=== PATIENT | female | born 1945 | race Caucasian/White ===

== ENCOUNTER → 2017-01-01 | Outpatient (CLI) | payer OTHER ==
[~2017-01-01] MED LIST: ASPI-232 PO; IBUP1CAP9 PO; MULT-506 PO; NAPR1CAP12 PO; stool softner PO
== END | disposition home or self-care (01) ==
LOC: C.LABSPEC 12:23
PROVIDERS: ATTEND Internal Medicine
DX: Z12.11 Encounter for screening for malignant neoplasm of colon (principal)

== ENCOUNTER → 2017-03-01 | Outpatient (CLI) | payer OTHER ==
--- NOTE | 2017-03-01 08:46 | DIAGNOSTIC IMAGING REPORT ---
RIGHT ANKLE 3 VIEWS HISTORY: TRAUMA RT ANKLE PAIN Right COMPARISON: None. FINDINGS: There is no fracture or dislocation. Mild soft tissue swelling. No radiopaque foreign bodies. Posterior calcaneal spur. IMPRESSION: No fractures. Electronically signed by: George Al M.D. 03/01/2017 8:45 AM Dictated Date/Time: 03/01/2017 8:43 AM
== END | disposition home or self-care (01) ==
LOC: C.RAD 08:10
PROVIDERS: ATTEND Internal Medicine
DX: S99.911A Unspecified injury of right ankle, initial encounter (principal); X58.XXXA Exposure to other specified factors, initial encounter

== ENCOUNTER → 2017-06-21 | Outpatient (CLI) | payer OTHER ==
[2017-06-21 12:46] LABS: BASO % 0.6 %; BASO ABS # 0.05 K/uL (0-0.2); COMPLETE YES; EOS % 2.3 %; HEMATOCRIT 40.1 % (37-47); IG% 0.1 %; LYMPH % 40.1 %; LYMPH ABS # 3.25 K/uL (1.2-3.4); MEAN CELL VOLUME 94.6 fL (80-100); MEAN CORPUSCULAR HEMOGLOBIN 31.1 pg (25-34); MEAN CORPUSCULAR HGB CONC 32.9 g/dl (32-36); MEAN PLATELET VOLUME 10.3 fL (7.4-10.4); MONO % 6.7 %; NEUT % 50.2 %; PLATELET COUNT 255 K/uL (130-400); RED BLOOD COUNT 4.24 M/uL (4.2-5.4); WHITE BLOOD COUNT 8.11 K/uL (4.8-10.8)
[2017-06-21 13:13] LABS: ALT/SGPT 32 U/L (12-78); BLOOD UREA NITROGEN 19 mg/dl (7-18); CARBON DIOXIDE 27 mmol/L (21-32); CHLORIDE 106 mmol/L (98-107); CHOLESTEROL 209 mg/dl (0-200); CREATININE 0.91 mg/dl (0.60-1.20); GLUCOSE 104 mg/dl (70-99); POTASSIUM 4.3 mmol/L (3.5-5.1); SODIUM 137 mmol/L (136-145); TRIGLYCERIDES 226 mg/dl (0-150); VERY LOW DENSITY LIPOPROT CALC 45 mg/dl
[2017-06-21 13:23] LABS: ALB/GLOB RATIO 1.2 (0.9-2); ALKALINE PHOSPHATASE 47 U/L (45-117); AST/SGOT 23 U/L (15-37); CHOLESTEROL/HDL RATIO 3.6; HDL CHOLESTEROL 58 mg/dl
== END | disposition home or self-care (01) ==
LOC: C.LABSPEC 12:14
PROVIDERS: ATTEND Internal Medicine
DX: R53.83 Other fatigue (principal); E78.5 Hyperlipidemia, unspecified

== ENCOUNTER → 2017-12-24 | Outpatient (CLI) | payer OTHER ==
[2017-12-24 13:10] LABS: BASO % 0.2 %; BASO ABS # 0.02 K/uL (0-0.2); EOS ABS # 0.16 K/uL (0-0.5); HEMATOCRIT 41.6 % (37-47); HEMOGLOBIN 13.8 g/dL (12.0-16.0); IG# 0.02 K/uL (0.00-0.02); LYMPH % 31.8 %; LYMPH ABS # 2.57 K/uL (1.2-3.4); MEAN CELL VOLUME 93.7 fL (80-100); MEAN CORPUSCULAR HEMOGLOBIN 31.1 pg (25-34); MEAN CORPUSCULAR HGB CONC 33.2 g/dl (32-36); MEAN PLATELET VOLUME 10.6 fL (7.4-10.4); MONO ABS # 0.73 K/uL (0.11-0.59); NEUT % 56.8 %; NEUT ABS # 4.59 K/uL (1.4-6.5); PLATELET COUNT 266 K/uL (130-400); RED CELL DISTRIBUTION WIDTH CV 13.4 % (11.5-14.5); RED CELL DISTRIBUTION WIDTH SD 46.2 fL (36.4-46.3); WHITE BLOOD COUNT 8.09 K/uL (4.8-10.8)
[2017-12-24 13:27] LABS: ALBUMIN 4.1 gm/dl (3.4-5.0); ALKALINE PHOSPHATASE 59 U/L (45-117); ALT/SGPT 26 U/L (12-78); AST/SGOT 22 U/L (15-37); BLOOD UREA NITROGEN 17 mg/dl (7-18); CALCIUM 9.5 mg/dl (8.5-10.1); CARBON DIOXIDE 25 mmol/L (21-32); CHOLESTEROL 216 mg/dl (0-200); CREATININE 1.09 mg/dl (0.60-1.20); GLUCOSE 113 mg/dl (70-99); LDL CHOLESTEROL (DIRECT) 136 mg/dl; POTASSIUM 4.5 mmol/L (3.5-5.1); SODIUM 137 mmol/L (136-145); TOTAL PROTEIN 7.8 gm/dl (6.4-8.2)
== END | disposition home or self-care (01) ==
LOC: C.LABSPEC 12:34
PROVIDERS: ATTEND Internal Medicine
DX: R73.9 Hyperglycemia, unspecified (principal); E78.5 Hyperlipidemia, unspecified; E66.9 Obesity, unspecified; E55.9 Vitamin D deficiency, unspecified

== ENCOUNTER 2023-06-28 08:36 | Inpatient (IN) ==
--- NOTE | 2023-06-28 08:50 | Emergency Department Note ---
Impression & Plan URI (upper respiratory infection), Cigarette smoker, Elevated troponin, Enterovirus infection ED Provider Note Provider: John Winston MD DATE OF SERVICE: 06/28/2023 CHIEF COMPLAINT: Cough, nausea, cold symptoms, sore throat HISTORY OF PRESENT ILLNESS: Patient is a 78-year-old female past medical history of sinusitis and pneumonia presenting here today reporting that she believes she has a cold or flu. Reports cough and nausea nasal congestion and a sore throat. Evidently became ill 4 days ago on Sunday with a sore throat. States this has been improving but a cough now with green sputum. Overnight developed significant nausea and episodes of nonbloody vomiting as well as diarrhea. Denies abdominal pain. Maybe a little bit of pain in the right mid back. This is constant and not worse with breathing. Maybe a slight wheeze but denies significant shortness of breath. Denies chest pain. Not sure that she has had any fevers or chills. No sick contacts or suspect food intake. No travel. Denies ear complaints. Some sinus congestion. Has been using some cough and cold medicine at home but not overnight as she is now just vomiting. Denies abdominal pain. PAST MEDICAL HISTORY: As noted above MEDICATIONS: Lisinopril, denies inhaler, [id number] SOCIAL HISTORY: Smoker, lives by herself PHYSICAL EXAM: GENERAL: alert and oriented in no acute distress on stretcher Head: normocephalic and atraumatic EYES: No injection, discharge or icterus. NECK: Trachea midline. ENT: Mucous membranes pink and moist. Pharynx without erythema or exudate. LUNGS: Airway patent. No retractions. Breath sounds with some end expiratory wheeze HEART: Regular rate and rhythm. No chest wall tenderness ABDOMEN: Soft and non-tender, without guarding or rebound. No masses appreciated SKIN: Acyanotic, warm, dry, without rashes EXTREMITIES: Without swelling, tenderness or deformity NEUROLOGICAL: No focal deficits. No aphasia. No facial droop or slurred speech. Ambulatory. EK bpm normal sinus rhythm with sinus arrhythmia. No ST segment elevation or depression with QTc of 439. CONTINUOUS CARDIAC MONITORING: was ordered and showed a heart rate of bpm in Patient's laboratory studies and imaging reviewed. Differential includes Appendicitis, pneumonia, URI, POLICE CRIME SCENE TECHNICIAN, RPA, meningitis, sinusitis, AOM, neck infection, PE, gastrointestinal infections, diverticuliti s, UTI, obstruction, mesenteric ischemia, aortic pathology, inflammatory bowel disease, renal colic, PUD, pancreatitis, biliary pathology, hernia, volvulus, constipation, as well as other pathologies. IMPRESSION/MEDICAL DECISION MAKING: Patient smoker with slight end expiratory wheeze. Not hypoxic here. Question viral illness given the current community situation promoting her symptoms. No evidence of RPA POLICE CRIME SCENE TECHNICIAN or meningitis on clinical exam. Denies significant ear complaints and doubt mastoiditis or AOM based on this. Benign abdomen without tenderness. Little bit of pain in the right posterior mid back fairly constant. Doubt this represents PE. Has been coughing and having some green sputum production. X-ray obtained to look for any signs of pneumonia. Given a DuoNeb with a wheeze. Given a small mount of steroids with this and her smoking history as well. Given some Zofran to help with the nausea. Benign abdomen otherwise without tenderness and doubt perforation, obstruction, diverticulitis, appendicitis, or cholecystitis with this. We will check labs including a comp lete metabolic panel as well as EKG and troponin given her age to exclude occult pathology here. Respiratory viral panel was sent. Chest x-ray per radiology review without findings concerning for pneumonia. No leukocytosis or anemia on blood work. Electrolytes without abnormality. Normal renal function and no signs of hepatitis or pancreatitis. Patient is noted to have a troponin elevation of 35. Given this and her complaints of illness as well as some pain into the right lower flank we will complete a CT of the chest to exclude PE. Patient on reassessment however is feeling a bit better. Again denies any chest pain. CT angiogram reassuring. Made aware of very small slight pulmonary nodule. No evidence of PE by report. Repeat troponin sent here. Low suspicion at this time for acute ACS. Troponin does increase to 48 a decent delta. Given aspirin here. Discussed with her as well as family recommendation that we observe her overnight given this. Believe is likely more demand related to her illness than ACS but given the increase Awad observation is indicated. Switching to [facility] PCP. Hospitalist team contacted. Respiratory viral panel returns positive for enterorhinovirus likely explaining her symptoms. DIAGNOSIS: URI, elevated troponin, smoker, rhino/enterovirus DISPOSITION: Being evaluated by the hospitalist team Patient was agreeable with this plan. Past Med/Surg History Medical History (Updated 06/28/23 @ 13:08 by John Winston M.D.) LYNNETTE (generalized anxiety disorder) HLD (hyperlipidemia) Hypertension Pneumonia Tobacco abuse Family History Other Cancer Social History Smoking Status: Current every day smoker Second Hand Exposure: Yes; Do You Dip or Chew Tobacco: No; Hx Alcohol Use: No Hx Substance Use: No Preferred Language: Puerto Rican Communication Ability: Effective Respite Coordinator Required: No Beliefs That Will Affect Care: None Current Living Situation: Alone current occupational status: retired Feels Safe at Home: Yes Assistive Devices: None Allergies Allergies Allergy/AdvReac Type Severity Reaction Status Date / Time No Known Allergies Allergy Mild Unverified 06/28/23 10:22 Home Meds Home Medications Medication Instructions Recorded Confirmed aspirin 81 mg tablet,delayed 81 mg PO QAM ##0 01/27/13 06/28/23 release docusate sodium 100 mg capsule 100 mg PO TID ##0 01/27/13 06/28/23 multivitamin 1 tab PO DAILY #0 tabs 01/27/13 06/28/23 doxylamine succinate 25 mg tablet 50 mg PO HS 07/24/18 06/28/23 (Sleep Aid (doxylamine)) lisinopril 10 mg tablet 10 mg PO QAM 06/28/23 06/28/23 Results & Data (ED) Vital Signs Vital Signs - 24 hr 06/28/23 08:45 06/28/23 09:42 06/28/23 09:40 Temperature 36.7 C Temperature Source Temporal Artery Scan Pulse Rate 82 76 Pulse Rate [Apical] 75 Pulse Rate from SpO2 Sensor Respiratory Rate 16 22 Respiratory Effort / Characteristics Non-Labored Non-Labored Spontaneous Respiratory Depth Normal Normal Respiratory Pattern Regular Blood Pressure 136/89 Blood Pressure [Right Arm] 181/90 H Blood Pressure Mean 104 Blood Pressure Mean [Right Arm] 120 Blood Pressure Position [Right Arm] Pulse Oximetry 98 100 Oxygen Delivery Method Room Air Nebulizer Sepsis Recent Fever Within 48 Hours No Sepsis New/Unexplained Change in Mental Status No Sepsis Action Taken by Nursing No Action Required 06/28/23 09:34 06/28/23 09:43 06/28/23 09:43 Temperature Temperature Source Pulse Rate 85 68 Pulse Rate [Apical] Pulse Rate from SpO2 Sensor 73 68 Respiratory Rate 21 16 Respiratory Effort / Characteristics Respiratory Depth Respiratory Pattern Blood Pressure 181/90 H Blood Pressure [Right Arm] Blood Pressure Mean 119 Blood Pressure Mean [Right Arm] Blood Pressure Position [Right Arm] Pulse Oximetry 97 100 Oxygen Delivery Method Sepsis Recent Fever Within 48 Hours Sepsis New/Unexplained Change in Mental Status Sepsis Action Taken by Nursing 06/28/23 10:00 06/28/23 10:00 06/28/23 11:23 Temperature Temperature Source Pulse Rate 67 Pulse Rate [Apical] 68 Pulse Rate from SpO2 Sensor 64 Respiratory Rate 22 18 Respiratory Effort / Characteristics Non-Labored Respiratory Depth Normal Respiratory Pattern Regular Blood Pressure 154/65 H Blood Pressure [Right Arm] 167/86 H Blood Pressure Mean 128 Blood Pressure Mean [Right Arm] 113 Blood Pressure Position [Right Arm] Lying Pulse Oximetry 93 95 Oxygen Delivery Method Room Air Sepsis Recent Fever Within 48 Hours Sepsis New/Unexplained Change in Mental Status Sepsis Action Taken by Nursing 06/28/23 12:59 06/28/23 13:40 06/28/23 13:47 Temperature Temperature Source Pulse Rate 72 Pulse Rate [Apical] 72 75 Pulse Rate from SpO2 Sensor Respiratory Rate 18 18 Respiratory Effort / Characteristics Non-Labored Non-Labored Respiratory Depth Normal Normal Respiratory Pattern Regular Blood Pressure Blood Pressure [Right Arm] 166/79 H Blood Pressure Mean Blood Pressure Mean [Right Arm] 108 Blood Pressure Position [Right Arm] Lying Pulse Oximetry 96 95 Oxygen Delivery Method Room Air Room Air Sepsis Recent Fever Within 48 Hours Sepsis New/Unexplained Change in Mental Status Sepsis Action Taken by Nursing 06/28/23 14:49 Temperature Temperature Source Pulse Rate Pulse Rate [Apical] 75 Pulse Rate from SpO2 Sensor Respiratory Rate 16 Respiratory Effort / Characteristics Non-Labored Respiratory Depth Normal Respiratory Pattern Blood Pressure Blood Pressure [Right Arm] 151/81 H Blood Pressure Mean Blood Pressure Mean [Right Arm] 104 Blood Pressure Position [Right Arm] Lying Pulse Oximetry 97 Oxygen Delivery Method Room Air Sepsis Recent Fever Within 48 Hours Sepsis New/Unexplained Change in Mental Status Sepsis Action Taken by Nursing Laboratory Data 06/28/23 09:17 06/28/23 09:17 Lab Results 06/28/23 06/28/23 06/28/23 Range/Units 09:17 09:17 09:44 WBC 7.11 (4.8-10.8) K/ul RBC 4.46 (4.20-5.40) M/uL Hgb 14.3 (12.0-16.0) g/dl Hct 41.7 (37.0-47.0) % MCV 93.5 (80.0-100.0) fL MCH 32.1 (25.0-34.0) pg MCHC 34.3 (32.0-36.0) g/dL RDW Std Deviation 43.7 (36.4-46.3) fL RDW Coeff of [employer] 12.6 (11.5-14.5) % Plt Count 243 (130-400) K/uL MPV 9.8 (9.4-12.4) fL Immature Gran % (Auto) 0.3 % Neut % (Auto) 73.9 % Lymph % (Auto) 21.0 % [place] % (Auto) 4.5 % Eos % (Auto) 0.0 % Baso % (Auto) 0.3 % Neut # (Auto) 5.26 (1.40-6.50) K/uL Lymph # (Auto) 1.49 (1.20-3.40) K/uL [place] # (Auto) 0.32 (0.11-0.59) K/uL Eos # (Auto) 0.00 (0.00-0.50) K/uL Baso # (Auto) 0.02 (0.00-0.20) K/uL Immature Gran # (Auto) 0.02 (0.01-0.20) K/uL Sodium 136 (136-145) mmol/L Potassium 4.3 (3.5-5.1) mmol/L Chloride 103 (98-107) mmol/L Carbon Dioxide 27 (21-32) mmol/L Anion Gap 6 (3-11) BUN 20 (6-23) mg/dl Creatinine 1.08 (0.6-1.2) mg/dl Est Cr Clr Drug Dosing 43.1 ml/min Est GFR ( Amer) 57.7 ml/min Est GFR (Non-Af Amer) 49.8 ml/min BUN/Creatinine Ratio 18.5 (10-20) Glucose 145 H (70-99(Fasting)) mg/dl Calcium 10.0 (8.6-10.3) mg/dl Total Bilirubin 0.6 (0.2-1.0) mg/dl AST 24 (13-39) U/L ALT 17 (7-52) U/L Alkaline Phosphatase 38 (34-104) U/L Troponin I High Sens 35.3 H (0-14) pg/ml Total Protein 7.8 (6.0-8.3) gm/dl Albumin 4.5 (3.4-5.0) gm/dl Globulin 3.3 (2.5-4.0) gm/dl Albumin/Globulin Ratio 1.4 (0.9-2) Lipase 18 (11-82) U/L Adenovirus (PCR) Not Detected (NotDetected) B. pertussis DNA (PCR) Not Detected (NotDetected) B.parapertussis DNA PCR Not Detected (NotDetected) C. pneumoniae DNA (PCR) Not Detected (NotDetected) Coronavirus OC43 (PCR) Not Detected (NotDetected) Coronavirus HKU1 (PCR) Not Detected (NotDetected) Coronavirus 229E (PCR) Not Detected (NotDetected) SARS-CoV-2 (PCR) Not Detected (NotDetected) Coronavirus NL63 (PCR) Not Detected (NotDetected) Human Metapneumovir PCR Not Detected (NotDetected) Influenza Type A (PCR) Not Detected (NotDetected) Influenza Type B (PCR) Not Detected (NotDetected) M. pneumoniae (PCR) Not Detected (NotDetected) Parainfluenza 1 (PCR) Not Detected (NotDetected) Parainfluenza 2 (PCR) Not Detected (NotDetected) Parainfluenza 3 (PCR) Not Detected (NotDetected) Parainfluenza 4 (PCR) Not Detected (NotDetected) RSV (PCR) Not Detected (NotDetected) Entero/Rhino (PCR) DETECTED A* (NotDetected) 06/28/23 Range/Units 11:02 WBC (4.8-10.8) K/ul RBC (4.20-5.40) M/uL Hgb (12.0-16.0) g/dl Hct (37.0-47.0) % MCV (80.0-100.0) fL MCH (25.0-34.0) pg MCHC (32.0-36.0) g/dL RDW Std Deviation (36.4-46.3) fL RDW Coeff of [employer] (11.5-14.5) % Plt Count (130-400) K/uL MPV (9.4-12.4) fL Immature Gran % (Auto) % Neut % (Auto) % Lymph % (Auto) % [place] % (Auto) % Eos % (Auto) % Baso % (Auto) % Neut # (Auto) (1.40-6.50) K/uL Lymph # (Auto) (1.20-3.40) K/uL [place] # (Auto) (0.11-0.59) K/uL Eos # (Auto) (0.00-0.50) K/uL Baso # (Auto) (0.00-0.20) K/uL Immature Gran # (Auto) (0.01-0.20) K/uL Sodium (136-145) mmol/L Potassium (3.5-5.1) mmol/L Chloride (98-107) mmol/L Carbon Dioxide (21-32) mmol/L Anion Gap (3-11) BUN (6-23) mg/dl Creatinine (0.6-1.2) mg/dl Est Cr Clr Drug Dosing ml/min Est GFR ( Amer) ml/min Est GFR (Non-Af Amer) ml/min BUN/Creatinine Ratio (10-20) Glucose (70-99(Fasting)) mg/dl Calcium (8.6-10.3) mg/dl Total Bilirubin (0.2-1.0) mg/dl AST (13-39) U/L ALT (7-52) U/L Alkaline Phosphatase (34-104) U/L Troponin I High Sens 48.2 H D (0-14) pg/ml Total Protein (6.0-8.3) gm/dl Albumin (3.4-5.0) gm/dl Globulin (2.5-4.0) gm/dl Albumin/Globulin Ratio (0.9-2) Lipase (11-82) U/L Adenovirus (PCR) (NotDetected) B. pertussis DNA (PCR) (NotDetected) B.parapertussis DNA PCR (NotDetected) C. pneumoniae DNA (PCR) (NotDetected) Coronavirus OC43 (PCR) (NotDetected) Coronavirus HKU1 (PCR) (NotDetected) Coronavirus 229E (PCR) (NotDetected) SARS-CoV-2 (PCR) (NotDetected) Coronavirus NL63 (PCR) (NotDetected) Human Metapneumovir PCR (NotDetected) Influenza Type A (PCR) (NotDetected) Influenza Type B (PCR) (NotDetected) M. pneumoniae (PCR) (NotDetected) Parainfluenza 1 (PCR) (NotDetected) Parainfluenza 2 (PCR) (NotDetected) Parainfluenza 3 (PCR) (NotDetected) Parainfluenza 4 (PCR) (NotDetected) RSV (PCR) (NotDetected) Entero/Rhino (PCR) (NotDetected) Administered Medications Azithromycin 500 mg/ Dextrose 255 mls @ 125 mls/hr IV ONE ONE Stop: 06/28/23 16:47 Last Admin: 06/28/23 14:44 Dose: 125 mls/hr Documented By: HAILY Discontinued Medications Acetaminophen (Acetaminophen 500 Mg Tab) 1,000 mg PO NOW STA Stop: 06/28/23 08:57 Last Admin: 06/28/23 09:39 Dose: 1,000 mg Documented By: VANDANA Albuterol (Albut/Ipratrop 3mg/0.5mg Neb 3 Ml Vial) 3 ml NEB NOW STA; Protocol Stop: 06/28/23 08:57 Last Admin: 06/28/23 09:40 Dose: 3 ml Documented By: VANDANA Aspirin (Aspirin Chew 324 Mg) 324 mg PO NOW STA Stop: 06/28/23 11:45 Last Admin: 06/28/23 11:50 Dose: 324 mg Documented By: HAILY Dexamethasone Sodium Phosphate (DexamethasonePf 10 Mg/Ml Vial) 6 mg IV NOW ONE Stop: 06/28/23 08:57 Last Admin: 06/28/23 09:39 Dose: 6 mg Documented By: VANDANA Sodium Chloride (Nss) 1,000 mls @ 999 mls/hr IV .Q1H1M ONE Stop: 06/28/23 09:56 Last Infusion: 06/28/23 10:43 Dose: 0 mls/hr Documented By: Admin: 06/28/23 09:39 Dose: 999 mls/hr Documented By: VANDANA Ioversol (Optiray 320 500ml) 112 ml IV ONCE ONE Stop: 06/28/23 10:36 Last Admin: 06/28/23 10:35 Dose: 112 ml Documented By: NEIL Ondansetron HCl (Ondansetron Inj 2 Mg/Ml 2 Ml Vial) 4 mg IV NOW STA Stop: 06/28/23 08:57 Last Admin: 06/28/23 09:39 Dose: 4 mg Documented By: VANDANA Imaging Data Radiologist's Impression: Chest X-Ray 06/28/23 08:56 XR chest 1V portable HISTORY: 78 years-old Female cough acute cough COMPARISON: 08/21/2022 TECHNIQUE: AP view of the chest FINDINGS: Cardiomediastinal and hilar silhouettes are within normal limits. No pneumothorax, pleural effusion, airspace consolidation or pulmonary edema. Bones appear grossly intact. IMPRESSION: No acute process. ACT 112: Negative or not required by law. The above report was generated using voice recognition software. It may contain grammatical, syntax or spelling errors. Electronically signed by: Joe Alva M.D. 06/28/2023 9:24 AM Chest CTA 06/28/23 10:13 CT ANGIOGRAM OF THE CHEST CLINICAL HISTORY: Atypical chest pain. Cough and dyspnea. Elevated troponin. COMPARISON STUDY: Chest x-ray dated 06/28/2023. TECHNIQUE: Following the IV administration of 112 cc of Optiray 320, CT angiogram of the chest was performed from the upper abdomen to the thoracic inlet utilizing the pulmonary embolus protocol. Images are reviewed in the axial, sagittal, and coronal planes. 3-D MIPS images are created and assessed. IV contrast was administered without complication. A dose lowering technique was utilized adhering to the principles of ALARA. CT DOSE: 391.29 mGy.cm FINDINGS: Thyroid: Imaged portions of the thyroid gland are normal in size and attenuation. Thoracic aorta: There is atherosclerotic calcification of the thoracic aorta, which is normal in caliber and demonstrates standard 3-vessel arch anatomy. No dissection is seen. Pulmonary vasculature: The pulmonary trunk is dilated, measuring 3.6 cm in diameter. This suggests pulmonary artery hypertension. There are no filling defects identified in main, lobar, or segmental pulmonary branches to suggest pulmonary embolus. Heart: The heart is mildly enlarged and without pericardial effusion. There are scattered coronary artery calcifications. Lungs and pleural spaces: Evaluation of the lung parenchyma is modestly degraded by motion artifact. There is mild emphysematous change. The trachea and central airways are clear. No airspace consolidation or pleural effusion is identified. A 3 mm left lower lobe pulmonary nodule is seen on image #143. Mediastinum: There is no mediastinal lymphadenopathy. [place]: Clear. Axillae: There is no axillary lymphadenopathy. Upper abdomen: Partially visualized upper abdominal viscera is within normal limits. Skeletal structures: The skeletal structures are osteopenic. Mild degenerative c hange is noted in the shoulders. No lytic or blastic bony lesions are seen. IMPRESSION: 1. There is no evidence of pulmonary embolus in the main, lobar, or segmental pulmonary arteries. 2. Mild cardiac enlargement and mild emphysema. 3. There is no airspace consolidation or pleural effusion. 4. An indeterminant 3 mm pulmonary nodule is seen in the left lower lobe. If clinically warranted this can be followed as per the Fleischner. See below. Please refer to below summary of Fleischner criteria recommendations for follow- up of incidental CT nodules (Isabel Van, Guidelines for management of small pulmonary nodules detected on CT scans: A statement from the Fleischner Society, Radiology 237: [phone].) SOLID NODULES Solitary nodule size: <6 mm * low risk patients: no follow-up needed * high risk patients: optional CT at 12 months Solitary nodule size: 6-8 mm * low risk patients: follow-up at 6-12 months, then consider further follow-up at 18-24 months * high risk patients: initial follow-up CT at 6-12 months and then at 18-24 months if no change Solitary nodule size: >8 mm * either low or high risk patients - consider follow-up CT at 3 months, and/or CT-PET, and/or biopsy Multiple nodules size: <6 mm * low risk patients: no routine follow-up * high risk patients: optional CT at 12 months Multiple nodules size: 6-8 mm * low risk patients: follow-up at 3-6 months, then consider further follow-up at 18-24 months * high risk patients: follow-up at 3-6 months, then at 18-24 months if no change Multiple nodules size: >8 mm * low risk patients: follow-up at 3-6 months, then consider further follow-up at 18-24 months * high risk patients: follow-up at 3-6 months, then at 18-24 months if no change Note: newly detected indeterminate nodule in persons 35 years of age or older. * low risk patients: minimal or absent history of smoking and/or other known risk factors * high risk patients: history of smoking or of other known risk factors (e.g. first degree relative with lung cancer, or exposure to asbestos, radon, uranium) * if a nodule up to 8 mm is partly solid or is ground glass further follow-up is required after 24 months to exclude possible slow growing adenocarcinoma (EJ) SUBSOLID NODULES Solitary pure ground-glass nodule * nodule size <6 mm - no CT follow-up required * nodule size >=6 mm - follow-up CT at 6-12 months, then every 2 years until 5 years Solitary part-solid nodule * nodule size <6 mm - no CT follow-up required * nodule size >=6 mm - follow-up CT at 3-6 months. If unchanged, and solid component remains <6 mm, then annual follow-up for 5 years Multiple subsolid nodules * nodule size <6 mm - follow-up CT at 3-6 months, consider further follow-up at 2 and 4 years if stable * nodule size >=6 mm - follow-up CT at 3-6 months, subsequent management based on the most suspicious nodule(s) ACT 112: Negative or not required by law. Electronically signed by: Dylon Valle M.D. 06/28/2023 10:54 AM Discharge Plan Visit Data Chief Complaint: Illness Stated Complaint: DRY HEAVING,ACHES,HEAD COLD ED Provider: John Winston Discharge Problem: URI (upper respiratory infection), Cigarette smoker, Elevated troponin, Enterovirus infection Patient Disposition: Being Evaluated by Hospitalist Forms Stand Alone Forms: [facility] [facility] Prescriptions Prescriptions: No Action multivitamin Tablet 1 tab PO DAILY Qty: 0 aspirin 81 mg Tablet,Delayed Release (Dr/Ec) 81 mg PO QAM Qty: 0 docusate sodium 100 mg Capsule 100 mg PO TID Qty: 0 Sleep Aid (doxylamine) 25 mg Tablet 50 mg PO HS lisinopril 10 mg tablet 10 mg PO QAM Referrals Referrals: Outside,Provider [Outside Practitioners] -
[2023-06-28] MEDS ORDERED: ONDANSETRON INJ 2 MG/ML 2 ML VIAL IV STA (08:56)
[2023-06-28] MEDS ORDERED: dexAMETHasone**PF** 10 MG/ML VIAL IV ONE (08:56)
[2023-06-28] MEDS ORDERED: ALBUT/IPRATROP 3MG/0.5MG NEB 3 ML VIAL NEB STA (08:56)
[2023-06-28] MEDS ORDERED: SODIUM CHLORIDE 0.9% 1,000 ML IV ONE (08:56)
[2023-06-28] MEDS ORDERED: ACETAMINOPHEN 500 MG TAB PO STA (08:56)
--- NOTE | 2023-06-28 09:25 | XRay Report ---
XR chest 1V portable HISTORY: 78 years-old Female cough acute cough COMPARISON: 08/21/2022 TECHNIQUE: AP view of the chest FINDINGS: Cardiomediastinal and hilar silhouettes are within normal limits. No pneumothorax, pleural effusion, airspace consolidation or pulmonary edema. Bones appear grossly intact. IMPRESSION: No acute process. ACT 112: Negative or not required by law. The above report was generated using voice recognition software. It may contain grammatical, syntax o r spelling errors. Electronically signed by: Joe Alva M.D. 06/28/2023 9:24 AM
[2023-06-28 09:33] LABS: Basophils # (auto) 0.02 K/uL (0.00-0.20); Basophils % (auto) 0.3 %; Hematocrit (blood only) 41.7 % (37.0-47.0); Hemoglobin 14.3 g/dl (12.0-16.0); Immature Granulocytes # (auto) 0.02 K/uL (0.01-0.20); Immature Granulocytes % (auto) 0.3 %; Lymphocytes # (auto) 1.49 K/uL (1.20-3.40); Mean Corpuscular Hemoglobin 32.1 pg (25.0-34.0); Mean Corpuscular Hgb Conc 34.3 g/dL (32.0-36.0); Mean Corpuscular Volume 93.5 fL (80.0-100.0); Mean Platelet Volume 9.8 fL (9.4-12.4); Monocytes # (auto) 0.32 K/uL (0.11-0.59); Monocytes % (auto) 4.5 %; Neutrophils # (auto) 5.26 K/uL (1.40-6.50); Neutrophils % (auto) 73.9 %; Platelet Count 243 K/uL (130-400); RDW Coefficient of Variation 12.6 % (11.5-14.5); RDW Standard Deviation 43.7 fL (36.4-46.3); Red Blood Count 4.46 M/uL (4.20-5.40); White Blood Count 7.11 K/ul (4.8-10.8)
[2023-06-28 09:53] LABS: Albumin Globulin Ratio 1.4 (0.9-2); Albumin Level 4.5 gm/dl (3.4-5.0); BUN Creatinine Ratio 18.5 (10-20); Bilirubin,Total 0.6 mg/dl (0.2-1.0); Creatinine Clr Calc Pharmacy 43.1 ml/min; Est GFR (African American) 57.7 ml/min; Est GFR (Non-African American) 49.8 ml/min; Globulin 3.3 gm/dl (2.5-4.0); Potassium 4.3 mmol/L (3.5-5.1); Total Protein 7.8 gm/dl (6.0-8.3)
[2023-06-28 09:59] LABS: Troponin I High Sensitivity 35.3 pg/ml (0-14)
[2023-06-28] MEDS ORDERED: OPTIRAY 320 500ml IV ONE (10:35)
--- NOTE | 2023-06-28 10:56 | CT Scan Report ---
CT ANGIOGRAM OF THE CHEST CLINICAL HISTORY: Atypical chest pain. Cough and dyspnea. Elevated troponin. COMPARISON STUDY: Chest x-ray dated 06/28/2023. TECHNIQUE: Following the IV administration of 112 cc of Optiray 320, CT angiogram of the chest was pe rformed from the upper abdomen to the thoracic inlet utilizing the pulmonary embolus protocol. Images are reviewed in the axial, sagittal, and coronal planes. 3-D MIPS images are created and assessed. I V contrast was administered without complication. A dose lowering technique was utilized adhering to the principles of ALARA. CT DOSE: 391.29 mGy.cm FINDINGS: Thyroid: Imaged portions of the thyroid gland are normal in size and attenuation. Thoracic aorta: There is atherosclerotic calcification of the thoracic aorta, which is normal in tatiana marry and demonstrates standard 3-vessel arch anatomy. No dissection is seen. Pulmonary vasculature: The pulmonary trunk is dilated, measuring 3.6 cm in diameter. This suggests pu lmonary artery hypertension. There are no filling defects identified in main, lobar, or segmental pul monary branches to suggest pulmonary embolus. Heart: The heart is mildly enlarged and without pericardial effusion. There are scattered coronary ar nadya calcifications. Lungs and pleural spaces: Evaluation of the lung parenchyma is modestly degraded by motion artifact. There is mild emphysematous change. The trachea and central airways are clear. No airspace consolidat ion or pleural effusion is identified. A 3 mm left lower lobe pulmonary nodule is seen on image #143. Mediastinum: There is no mediastinal lymphadenopathy. Saranya: Clear. Axillae: There is no axillary lymphadenopathy. Upper abdomen: Partially visualized upper abdominal viscera is within normal limits. Skeletal structures: The skeletal structures are osteopenic. Mild degenerative change is noted in the shoulders. No lytic or blastic bony lesions are seen. IMPRESSION: 1. There is no evidence of pulmonary embolus in the main, lobar, or segmental pulmonary arteries. 2. Mild cardiac enlargement and mild emphysema. 3. There is no airspace consolidation or pleural effusion. 4. An indeterminant 3 mm pulmonary nodule is seen in the left lower lobe. If clinically warranted thi s can be followed as per the Fleischner. See below. Please refer to below summary of Fleischner criteria recommendations for follow-up of incidental CT n jacob Van, Guidelines for management of small pulmonary nodules detected on CT scans: A sta tement from the Fleischner Society, Radiology 237: [phone].) SOLID NODULES Solitary nodule size: <6 mm * low risk patients: no follow-up needed * high risk patients: optional CT at 12 months Solitary nodule size: 6-8 mm * low risk patients: follow-up at 6-12 months, then consider further follow-up at 18-24 months * high risk patients: initial follow-up CT at 6-12 months and then at 18-24 months if no change Solitary nodule size: >8 mm * either low or high risk patients - consider follow-up CT at 3 months, and/or CT-PET, and/or biopsy Multiple nodules size: <6 mm * low risk patients: no routine follow-up * high risk patients: optional CT at 12 months Multiple nodules size: 6-8 mm * low risk patients: follow-up at 3-6 months, then consider further follow-up at 18-24 months * high risk patients: follow-up at 3-6 months, then at 18-24 months if no change Multiple nodules size: >8 mm * low risk patients: follow-up at 3-6 months, then consider further follow-up at 18-24 months * high risk patients: follow-up at 3-6 months, then at 18-24 months if no change Note: newly detected indeterminate nodule in persons 35 years of age or older. * low risk patients: minimal or absent history of smoking and/or other known risk factors * high risk patients: history of smoking or of other known risk factors (e.g. first degree relative with lung cancer, or exposure to asbestos, radon, uranium) * if a nodule up to 8 mm is partly solid or is ground glass further follow-up is required after 24 m onths to exclude possible slow growing adenocarcinoma (EJ) SUBSOLID NODULES Solitary pure ground-glass nodule * nodule size <6 mm - no CT follow-up required * nodule size >=6 mm - follow-up CT at 6-12 months, then every 2 years until 5 years Solitary part-solid nodule * nodule size <6 mm - no CT follow-up required * nodule size >=6 mm - follow-up CT at 3-6 months. If unchanged, and solid component remains <6 mm, then annual follow-up for 5 years Multiple subsolid nodules * nodule size <6 mm - follow-up CT at 3-6 months, consider further follow-up at 2 and 4 years if sta ble * nodule size >=6 mm - follow-up CT at 3-6 months, subsequent management based on the most suspiciou s nodule(s) ACT 112: Negative or not required by law. Electronically signed by: Dylon Valle M.D. 06/28/2023 10:54 AM
[2023-06-28 11:29] LABS: Adenovirus PCR Not Detected (NotDetected); Bordetella parapertussis PCR Not Detected (NotDetected); Bordetella pertussis PCR Not Detected (NotDetected); Chlamydia pneumoniae PCR Not Detected (NotDetected); Coronavirus 229E PCR Not Detected (NotDetected); Coronavirus CoV-2 (COVID19)PCR Not Detected (NotDetected); Coronavirus HKU1 PCR Not Detected (NotDetected); Coronavirus NL63 PCR Not Detected (NotDetected); Coronavirus OC43PCR Not Detected (NotDetected); Human Metapneumovirus PCR Not Detected (NotDetected); Influenza A PCR Not Detected (NotDetected); Influenza B PCR Not Detected (NotDetected); Mycoplasma pneumoniae PCR Not Detected (NotDetected); Parainfluenza Virus 1 PCR Not Detected (NotDetected); Parainfluenza Virus 2 PCR Not Detected (NotDetected); Parainfluenza Virus 3 PCR Not Detected (NotDetected); Parainfluenza Virus 4 PCR Not Detected (NotDetected); Respiratory Syncytial VirusPCR Not Detected (NotDetected)
[2023-06-28] MEDS ORDERED: ASPIRIN CHEW 324 MG PO STA (11:44)
--- NOTE | 2023-06-28 12:00 | History & Physical Report ---
Date of Service June 28, 2023 Assessment & Plan (1) Hypertension: (2) LYNNETTE (generalized anxiety disorder): (3) Tobacco abuse: Plan Ms Lexis Garner is a 78 year old woman with past medical history remarkable for hypertension, current tobacco use, HLD, osteopenia who is admitted due to acute COPD exacerbation iso rhino/enterovirus, as well as noted elevated troponin. Patient denies any stable/angina like symptoms at this time, but has multiple CAD risk factors that warrant likely OP stress test. Imaging also revealed emphysematous changes which raise concern of overlying exacerbation based upon presentation and exam. #Rhino/entervirus infection #Acute COPD exacerbation #Emphysematous change on imaging, likely COPD -Baseline chronic cough with morning sputum production, OTTO/breathless with hurrying/rushed activity, occasional chest tightness with wheezing -Increased cough and sputum production for 3 days, chest tightness and wheezing, OTTO with limited activity -Noted improvement with nebs and steroid -Contact/droplet precautions for rhino/enterovirus infection -Symptomatic management, mucinx BID ayan while inpatient -Flutter valve -Start LAMA/LABA, encourage OP PFTs and follow up -Duonebs -Prednisone burst 40mg total 5 days -Azithromycin 500mg x 3 days per GOLD guidelines -Encoruage smoking cessation #Elevated Troponin, likely demand iso infection; however, notable risk factors #Left anterior Fascicular block -Elevated CAD risk factors: current tobacco use, HTN, HLD, ?diabetes (elevated glucose) -Ordered A1C and lipid panel -Echo ordered -No reported angina symptoms per history, would consider OP stress testing with PCP #Hypertension -continue lisinopril 10mg qam #General anxiety -Request to trial medication, after long discussion, agreed upon buspar -Start buspar 5mg BID, ensure follow up for uptitration if necessary #Osteopenia -Never completed dexa scan -Start VitD-Ca supplement -Vit D in am -Encourage OP DEXA #Pulmonary Nodule #Tobacco Use -13 pack years (1-4 cigarettes per day since ~15 years old_ -3mm Left Lower Lobe pulm nodule -Will need 12 month follow up as high risk with on going tobacco use based upon fleischner criteria -Declined nicotine patch DVT lovenox bowel prn Replace lytes prn Admit to med/surg tele given elevated troponin Admission and Anticipated Discharge Date Admission Date: Time spent evaluating patient, direct bedside care, chart review, placing orders, interpretation of diagnostic studies, discussion with consultants, patient, and family members, as well as other required patient management brynadia gant is 75 minutes. History of Present Illness Chief Complaint: SOB, URI symptoms Primary Care Provider: Nas Velasquez MD Ms Lexis Garner is a 78 year old woman with past medical history remarkable for hypertension, current tobacco use, HLD, osteopenia who presented to [facility] due to SOB, chest congestion, and URI symptoms. Patient states that over the course of the last week, mostly the last 3 days, she has experienced increased cough, sputum production, chest tightness and wheezing. She states that she has a chronic cough, notably worse in mornings with white/green sputum production. She also notes that she occasionally is breathless on exertion, but contributed it to aging. She states she has smoked 1-4 cigarettes daily since age 15. She also endorses "high strung" personality and notable anxiety/worry. She states she has tried discussing with provider, but has historically been placed on SSRI then subsequently taken off--for which she states she doesn't clearly know why. Patient would like to trial something as she feels anxious but wishes to trial an agent without addictive properties or overly sedating. Patient denies any conversations historically about her cholesterol or glucose levels, or discussing lifestyle modifications. She denies any chest pain, palpitations, intermittent nausea, diaphoresis, or edema or other concerning features. In the ED, vitals were notable for BP of 160-180s, HR 68-70s, and O2 sat high 90s on RA. Imaging revealed mild cardiac enlargement with mild emphysema, as well as 3mm pulm nodule. Dilated pulm trunk at 3.6 cm suggestive of PHTN. Negative for PE. 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 for further evaluation and management of .... Allergies Allergy/AdvReac Type Severity Reaction Status Date / Time No Known Allergies Allergy Mild Unverified 06/28/23 10:22 Home Medications Medication Instructions Recorded Confirmed Type aspirin 81 mg tablet,delayed 81 mg PO QAM ##0 01/27/13 06/28/23 History release docusate sodium 100 mg capsule 100 mg PO TID ##0 01/27/13 06/28/23 History multivitamin 1 tab PO DAILY #0 tabs 01/27/13 06/28/23 History doxylamine succinate 25 mg tablet 50 mg PO HS 07/24/18 06/28/23 History (Sleep Aid (doxylamine)) lisinopril 10 mg tablet 10 mg PO QAM 06/28/23 06/28/23 History Past Med/Surg History Medical History (Updated 06/28/23 @ 13:08 by John Winston M.D.) LYNNETTE (generalized anxiety disorder) HLD (hyperlipidemia) Hypertension Pneumonia Tobacco abuse Family History Other Cancer Social History Smoking Status: Current every day smoker Second Hand Exposure: Yes; Do You Dip or Chew Tobacco: No; Hx Alcohol Use: No Hx Substance Use: No Preferred Language: Bengali Communication Ability: Effective [employer] Required: No Beliefs That Will Affect Care: None Current Living Situation: Alone current occupational status: retired Feels Safe at Home: Yes Assistive Devices: None Review of Systems Review of Systems: Constitutional: (+) fever/chills, (-) recent loss of weight, (-) appetite changes, (-) night sweats. Head: (-) headache, (-) dizziness. Eye: (-) blurring of vision, (-) double vision, (-) redness. Ear: (-) hearing loss, (-) discharge, (-) vertigo Nose: (-) discharge, (-) bleeding, (-) congestion, (-) post nasal drip. Throat: (+) sore throat, (-) hoarseness of voice, (-) odynophagia. Cardiovascular: (-) chest pain, (-) palpitations, (-) syncope, (-) orthopnea, (- ) PND, (-) leg swelling. Respiratory: (+) shortness of breath, (+) cough, (++) wheezing, (-) hemoptysis. Neuro: (-) weakness in extremities, (-) numbness, (-) tingling, (-) tremor. Gastrointestinal: (-) belly pain, (-) belly distension, (-) nausea, (-) vomiting, (-) diarrhea, (-) constipation, (-) na, (-) hematemesis, (-) h ematochezia, (-) bowel incontinence Genitourinary: (-) hematuria, (-) dysuria, (-) polyuria, (-) hesitancy, (-) frequency, (-) urinary incontinence. Musculoskeletal: (-) myalgia, (-) arthralgia. Skin: (-) rashes. Endocrine: (-) heat/cold intolerance. Physical Exam Physical Exam: GENERAL APPEARANCE: AxOx4, generally well-appearing female HEENT: NC, AT. MMM. EOMI, clear conjunctiva, oropharynx clear. NECK: Supple without lymphadenopathy. No stiffness or restricted ROM. HEART: Normal rate and regular rhythm, normal S1/S1, no m/r/g LUNGS: scattered wheezing, decreased peripheral sounds, no distress ABDOMEN: Soft, nontender, nondistended with good bowel sounds heard. BACK: No CVAT, no obvious deformity. EXTREMITIES: Without cyanosis, clubbing or edema. NEUROLOGICAL: Grossly nonfocal. Alert and oriented, moving all 4 extremities. CN not formally tested but appear grossly intact. Results & Data Results & Data Vital Signs (Past 12 Hours) Vital Signs Temp Pulse Pulse Resp BP BP Pulse Ox 06/28/23 11:23 68 18 167/86 H 95 06/28/23 10:00 67 22 93 06/28/23 10:00 154/65 H 06/28/23 09:43 181/90 H 06/28/23 09:43 68 16 100 06/28/23 09:34 85 21 97 06/28/23 09:40 76 06/28/23 09:42 75 22 181/90 H 100 06/28/23 08:45 36.7 C 82 16 136/89 98 O2 Del Method 06/28/23 11:23 Room Air 06/28/23 10:00 06/28/23 10:00 06/28/23 09:43 06/28/23 09:43 06/28/23 09:34 06/28/23 09:40 06/28/23 09:42 Nebulizer 06/28/23 08:45 Room Air Laboratory Results Short CBC 06/28/23 Range/Units 09:17 WBC 7.11 (4.8-10.8) K/ul Hgb 14.3 (12.0-16.0) g/dl Hct 41.7 (37.0-47.0) % Plt Count 243 (130-400) K/uL BMP 06/28/23 09:17 Sodium 136 Potassium 4.3 Chloride 103 Carbon Dioxide 27 BUN 20 Creatinine 1.08 Glucose 145 H Calcium 10.0 Liver Function 06/28/23 Range/Units 09:17 Total Bilirubin 0.6 (0.2-1.0) mg/dl AST 24 (13-39) U/L ALT 17 (7-52) U/L Alkaline Phosphatase 38 (34-104) U/L Albumin 4.5 (3.4-5.0) gm/dl Diagnostic Findings Chest X-Ray 06/28/23 08:56 XR chest 1V portable HISTORY: 78 years-old Female cough acute cough COMPARISON: 08/21/2022 TECHNIQUE: AP view of the chest FINDINGS: Cardiomediastinal and hilar silhouettes are within normal limits. No pneumothorax, pleural effusion, airspace consolidation or pulmonary edema. Bones appear grossly intact. IMPRESSION: No acute process. ACT 112: Negative or not required by law. The above report was generated using voice recognition software. It may contain grammatical, syntax or spelling errors. Electronically signed by: Joe Alva M.D. 06/28/2023 9:24 AM Chest CTA 06/28/23 10:13 CT ANGIOGRAM OF THE CHEST CLINICAL HISTORY: Atypical chest pain. Cough and dyspnea. Elevated troponin. COMPARISON STUDY: Chest x-ray dated 06/28/2023. TECHNIQUE: Following the IV administration of 112 cc of Optiray 320, CT angiogram of the chest was performed from the upper abdomen to the thoracic inlet utilizing the pulmonary embolus protocol. Images are reviewed in the axial, sagittal, and coronal planes. 3-D MIPS images are created and assessed. IV contrast was administered without complication. A dose lowering technique was utilized adhering to the principles of ALARA. CT DOSE: 391.29 mGy.cm FINDINGS: Thyroid: Imaged portions of the thyroid gland are normal in size and attenuation. Thoracic aorta: There is atherosclerotic calcification of the thoracic aorta, which is normal in caliber and demonstrates standard 3-vessel arch anatomy. No dissection is seen. Pulmonary vasculature: The pulmonary trunk is dilated, measuring 3.6 cm in diameter. This suggests pulmonary artery hypertension. There are no filling defects identified in main, lobar, or segmental pulmonary branches to suggest pulmonary embolus. Heart: The heart is mildly enlarged and without pericardial effusion. There are scattered coronary artery calcifications. Lungs and pleural spaces: Evaluation of the lung parenchyma is modestly degraded by motion artifact. There is mild emphysematous change. The trachea and central airways are clear. No airspace consolidation or pleural effusion is identified. A 3 mm left lower lobe pulmonary nodule is seen on image #143. Mediastinum: There is no mediastinal lymphadenopathy. Saranya: Clear. Axillae: There is no axillary lymphadenopathy. Upper abdomen: Partially visualized upper abdominal viscera is within normal limits. Skeletal structures: The skeletal structures are osteopenic. Mild degenerative change is noted in the shoulders. No lytic or blastic bony lesions are seen. IMPRESSION: 1. There is no evidence of pulmonary embolus in the main, lobar, or segmental pulmonary arteries. 2. Mild cardiac enlargement and mild emphysema. 3. There is no airspace consolidation or pleural effusion. 4. An indeterminant 3 mm pulmonary nodule is seen in the left lower lobe. If clinically warranted this can be followed as per the Fleischner. See below. Please refer to below summary of Fleischner criteria recommendations for follow- up of incidental CT nodules (Isabel Van, Guidelines for management of small pulmonary nodules detected on CT scans: A statement from the Fleischner Society, Radiology 237: [phone].) SOLID NODULES Solitary nodule size: <6 mm * low risk patients: no follow-up needed * high risk patients: optional CT at 12 months Solitary nodule size: 6-8 mm * low risk patients: follow-up at 6-12 months, then consider further follow-up at 18-24 months * high risk patients: initial follow-up CT at 6-12 months and then at 18-24 months if no change Solitary nodule size: >8 mm * either low or high risk patients - consider follow-up CT at 3 months, and/or CT-PET, and/or biopsy Multiple nodules size: <6 mm * low risk patients: no routine follow-up * high risk patients: optional CT at 12 months Multiple nodules size: 6-8 mm * low risk patients: follow-up at 3-6 months, then consider further follow-up at 18-24 months * high risk patients: follow-up at 3-6 months, then at 18-24 months if no change Multiple nodules size: >8 mm * low risk patients: follow-up at 3-6 months, then consider further follow-up at 18-24 months * high risk patients: follow-up at 3-6 months, then at 18-24 months if no change Note: newly detected indeterminate nodule in persons 35 years of age or older. * low risk patients: minimal or absent history of smoking and/or other known risk factors * high risk patients: history of smoking or of other known risk factors (e.g. first degree relative with lung cancer, or exposure to asbestos, radon, uranium) * if a nodule up to 8 mm is partly solid or is ground glass further follow-up is required after 24 months to exclude possible slow growing adenocarcinoma (EJ) SUBSOLID NODULES Solitary pure ground-glass nodule * nodule size <6 mm - no CT follow-up required * nodule size >=6 mm - follow-up CT at 6-12 months, then every 2 years until 5 years Solitary part-solid nodule * nodule size <6 mm - no CT follow-up required * nodule size >=6 mm - follow-up CT at 3-6 months. If unchanged, and solid component remains <6 mm, then annual follow-up for 5 years Multiple subsolid nodules * nodule size <6 mm - follow-up CT at 3-6 months, consider further follow-up at 2 and 4 years if stable * nodule size >=6 mm - follow-up CT at 3-6 months, subsequent management based on the most suspicious nodule(s) ACT 112: Negative or not required by law. Electronically signed by: Dylon Valle M.D. 06/28/2023 10:54 AM Medications Administered Home Medications Medication Instructions Recorded Confirmed Last Taken aspirin 81 mg tablet,delayed 81 mg PO QAM ##0 01/27/13 06/28/23 06/27/23 release docusate sodium 100 mg capsule 100 mg PO TID ##0 01/27/13 06/28/23 06/27/23 multivitamin 1 tab PO DAILY #0 tabs 01/27/13 06/28/23 06/27/23 doxylamine succinate 25 mg tablet 50 mg PO HS 07/24/18 06/28/23 06/27/23 (Sleep Aid (doxylamine)) lisinopril 10 mg tablet 10 mg PO QAM 06/28/23 06/28/23 06/27/23 Code Status & VTE Plan VTE Prophylaxis Plan VTE Prophylaxis will be ordered: Yes
[2023-06-28 13:07] LABS: Rhinovirus/Enterovirus PCR DETECTED (NotDetected)
--- NOTE | 2023-06-28 13:23 | Electrocardiogram Report ---
Test Reason : Blood Pressure : / mmHG Vent. 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
[2023-06-28] MEDS ORDERED: COUGH DROP (SUGAR FREE) LOZ 24 LOZ/1 BOX BUCCAL PRN (13:52)
[2023-06-28] MEDS ORDERED: AZITHROMYCIN 500 MG in DEXTROSE 5% 250 ML IV ONE (14:45)
[2023-06-28] MEDS: ALBUT/IPRATROP 3MG/0.5MG NEB 3 ML VIAL NEB SCH ×2 (17:34→19:45)
[2023-06-28] MEDS: UMECLIDINIUM/VILANTEROL 62.5/25MCG 7 PUFFS/INHALER INH SCH (18:08)
[2023-06-28] MEDS: ENOXAPARIN INJ 40 MG/0.4 ML SYR SQ SCH (18:08)
[2023-06-28] MEDS: CALCIUM 600MG + VIT D 400 IU TAB PO SCH (20:16)
[2023-06-28] MEDS: guaiFENesin 600 MG TABCR PO SCH (20:16)
[2023-06-28] MEDS: busPIRone 5 MG TAB PO SCH (20:16)
[2023-06-29] MEDS: lisinopril 20 MG TAB PO SCH ×2 (05:29→08:39)
[2023-06-29 05:45] LABS: Hematocrit (blood only) 37.3 % (37.0-47.0); Hemoglobin 12.5 g/dl (12.0-16.0); Mean Corpuscular Hemoglobin 31.5 pg (25.0-34.0); Mean Corpuscular Hgb Conc 33.5 g/dL (32.0-36.0); Mean Platelet Volume 10.1 fL (9.4-12.4); Platelet Count 225 K/uL (130-400); RDW Coefficient of Variation 12.9 % (11.5-14.5); RDW Standard Deviation 44.7 fL (36.4-46.3); Red Blood Count 3.97 M/uL (4.20-5.40)
[2023-06-29 05:46] LABS: BUN Creatinine Ratio 22.8 (10-20); Chol HDL Ratio 3.4 (0-5); Creatinine Clr Calc Pharmacy 46.1 ml/min; Est GFR (African American) 62.6 ml/min; Magnesium 1.6 mg/dl (1.7-2.4); Phosphorus 2.8 mg/dl (2.5-4.9); Potassium 3.9 mmol/L (3.5-5.1)
[2023-06-29 07:07] LABS: Estimated Average Glucose 117 mg/dl; Hemoglobin A1C 5.7 % (4.5-5.6)
[2023-06-29] MEDS: ALBUT/IPRATROP 3MG/0.5MG NEB 3 ML VIAL NEB SCH ×2 (07:12→12:35)
[2023-06-29] MEDS: CALCIUM 600MG + VIT D 400 IU TAB PO SCH ×2 (07:45→20:15)
[2023-06-29] MEDS: UMECLIDINIUM/VILANTEROL 62.5/25MCG 7 PUFFS/INHALER INH SCH (07:45)
[2023-06-29] MEDS: guaiFENesin 600 MG TABCR PO SCH ×2 (07:46→20:15)
[2023-06-29] MEDS: ASPIRIN 81 MG ECTAB PO SCH (07:46)
[2023-06-29] MEDS: AZITHROMYCIN 250 MG TAB PO SCH (07:46)
[2023-06-29] MEDS: busPIRone 5 MG TAB PO SCH ×2 (07:46→20:15)
[2023-06-29] MEDS: predniSONE 20 MG TAB PO SCH (07:46)
[2023-06-29] MEDS: MULTIVITAMIN TAB PO SCH (07:46)
[2023-06-29] MEDS: ONDANSETRON INJ 2 MG/ML 2 ML VIAL IV PRN (08:38)
[2023-06-29] MEDS: ACETAMINOPHEN 325 MG TAB PO PRN ×2 (08:38→20:14)
[2023-06-29] MEDS ORDERED: lisinopril 10 MG TAB PO SCH (09:00)
[2023-06-29 09:48] LABS: Appearance Urine Cloudy (Clear); Bacteria Urine Automated 4+ (Negative); Bilirubin Urine Negative (Negative); Blood Urine Negative (Negative); Color Urine Yellow; Epithelial Cell Urine Auto 20-30 /lpf (0-5); Glucose Urine UA Negative (Negative); Ketones Urine Trace (Negative); Leukocyte Esterase Urine 1+ (Negative); Nitrite Urine Positive (Negative); Protein Urine 2+ (Negative); RBC Urine Automated 0-4 /hpf (0-4); Specific Gravity Urine 1.026 (1.000-1.030); Urobilinogen Urine Negative (Negative); pH Urine 5.5 (4.5-7.5)
[2023-06-29] MEDS ORDERED: ALBUT/IPRATROP 3MG/0.5MG NEB 3 ML VIAL NEB PRN (11:30)
[2023-06-29] MEDS: cefTRIAXone SODIUM 1,000 MG in DEXTROSE 5 % MINI-B 50 ML IV SCH (12:15)
--- NOTE | 2023-06-29 16:31 | Hospitalist Progress Note ---
Date of Service June 29, 2023 Assessment & Plan (1) Hypertension: (2) LYNNETTE (generalized anxiety disorder): (3) Tobacco abuse: Plan Ms Lexis Garner is a 78 year old woman with past medical history remarkable for hypertension, current tobacco use, HLD, osteopenia who is admitted due to acute COPD exacerbation iso rhino/enterovirus, as well as noted elevated troponin. Patient denies any stable/angina like symptoms at this time, but has multiple CAD risk factors that warrant likely OP stress test. Imaging also revealed emphysematous changes which raise concern of overlying exacerbation based upon presentation and exam. #Acute COPD exacerbation #Rhino/entervirus infection -Baseline chronic cough with morning sputum production, OTTO/breathless with hurrying/rushed activity, occasional chest tightness with wheezing -Increased cough and sputum production for 3 days, chest tightness and wheezing, OTTO with limited activity -Noted improvement with nebs and steroid -Contact/droplet precautions for rhino/enterovirus infection -Symptomatic management, mucinx BID ayan while inpatient -Flutter valve -Start LAMA/LABA, encourage OP PFTs and follow up -Duonebs -Prednisone burst 40mg total 5 days -Azithromycin 500mg x 3 days per GOLD guidelines -Encoruage smoking cessation -Has been feeling better since admission and since initiation of the bronchodilators and steroid -We will continue with current management UTI UA suggestive of infection Started on intravenous ceftriaxone Await cultures Elevated Troponin, likely demand iso infection; however, notable risk factors #Left anterior Fascicular block -Elevated CAD risk factors: current tobacco use, HTN, HLD, ?diabetes (elevated glucose) Serial cardiac enzymes did not show any evidence of ACS Denies any cardiac symptoms -Ordered A1C and lipid panel -5.7 -Echo showed-LV systolic function is normal with EF 60 to 65%, LA mildly dilated, interatrial septum bows towards right atrium consistent with elevated right atrial pressure, no intra or atrial shunt and there is mild TR -No reported angina symptoms per history, would consider OP stress testing with PCP #Hypertension -continue lisinopril 10mg qam #General anxiety -Request to trial medication, after long discussion, agreed upon buspar -Start buspar 5mg BID, ensure follow up for uptitration if necessary #Osteopenia -Never completed dexa scan -Start VitD-Ca supplement -Vit D in am -Encourage OP DEXA #Pulmonary Nodule #Tobacco Use -13 pack years (1-4 cigarettes per day since ~15 years old_ -3mm Left Lower Lobe pulm nodule -Will need 12 month follow up as high risk with on going tobacco use based upon fleischner criteria -Declined nicotine patch DVT lovenox bowel prn Replace lytes prn Admit to med/surg tele given elevated troponin Admission and Anticipated Discharge Date Admission Date: June 28, 2023 Subjective 06/29/2023 The patient was seen and examined in medical telemetry unit She was admitted with COPD exacerbation and has been feeling much better with initial treatment Also complained of some pain in the right side of the upper back- noted to have UTI on UA examination Otherwise denies any urinary symptoms and her problem with bowel habit Review of Systems Review of Systems: All systems reviewed and are unremarkable except as noted below Physical Exam Physical Exam: Lying in bed comfortably Constitutional: well developed, well nourished, + ill appearing and average body habitus Eyes: PERRL, conjunctivae normal, anicteric sclerae ENMT: external ear and nose normal, oropharynx normal Neck: trachea midline, no thyromegaly Respiratory: no respiratory distress Auscultation: + diminished lung sounds, + crackles (Occasional crackles at the bases) and + wheezes Cardiovascular: Rate/Rhythm: regular rate and regular rhythm; not tachycardic Heart Sounds: normal S1 and normal S2; no murmur Extremities: no edema Gastrointestinal (Abdomen): Inspection/Auscultation: normal bowel sounds; abdomen not distended Percussion/Palpation: abdomen soft; abdomen nontender Musculoskeletal: No acute arthritis involving any of the joint Neurologic: normal touch/pain/proprioception and moves all extremities; no focal motor deficits Lymphatic: no cervical or axillary lymphadenopathy Results & Data Results & Data Vital Signs (Past 12 Hours) Vital Signs Temp Pulse Pulse Resp BP Pulse Ox O2 Del Method 06/29/23 15:25 66 06/29/23 15:19 37.4 C 66 20 146/68 H 91 Room Air 06/29/23 11:56 36.7 C 64 20 171/72 H 96 Room Air 06/29/23 08:15 Room Air 06/29/23 07:30 37 C 59 L 20 197/63 H 99 Room Air 06/29/23 07:12 77 17 95 Room Air 06/29/23 07:10 58 L Laboratory Results Short CBC 06/29/23 Range/Units 05:01 WBC 9.30 (4.8-10.8) K/ul Hgb 12.5 (12.0-16.0) g/dl Hct 37.3 (37.0-47.0) % Plt Count 225 (130-400) K/uL BMP 06/29/23 05:01 Sodium 138 Potassium 3.9 Chloride 104 Carbon Dioxide 27 BUN 23 Creatinine 1.01 Glucose 113 H Calcium 10.0 Urine 06/29/23 Range/Units 09:27 Urine Color Yellow Urine Appearance Cloudy A (Clear) Urine pH 5.5 (4.5-7.5) Ur Specific Peerless 1.026 (1.000-1.030) Urine Protein 2+ H (Negative) Urine Glucose (UA) Negative (Negative) Medications Administered Current Inpatient Medications Acetaminophen (Acetaminophen 325 Mg Tab) 650 mg PO Q4H PRN PRN Reason: pain/fever Stop: 07/28/23 16:08 Last Admin: 06/29/23 08:38 Dose: 650 mg Albuterol (Albut/Ipratrop 3mg/0.5mg Neb 3 Ml Vial) 3 ml NEB Q4R PRN; Protocol PRN Reason: Shortness Of Breath Or Wheezing Stop: 07/29/23 11:29 Aspirin (Aspirin 81 Mg Ectab) 81 mg PO QAM [facility] Stop: 07/29/23 08:59 Last Admin: 06/29/23 07:46 Dose: 81 mg Azithromycin (Azithromycin 250 Mg Tab) [facility] [place]: 07/04/23 09:01 Last Admin: 06/29/23 07:46 Dose: 500 mg Buspirone HCl (Buspirone 5 Mg Tab) 5 mg PO BID [facility] Stop: 07/28/23 20:59 Last Admin: 06/29/23 07:46 Dose: 5 mg Calcium/Vitamin D (Calcium 600mg + Vit D 400 Iu Tab) 1 tab PO BID [facility] Stop: 07/28/23 20:59 Last Admin: 06/29/23 07:45 Dose: 1 tab Enoxaparin Sodium (Enoxaparin Inj 40 Mg/0.4 Ml Syr) 40 mg SQ Q24H [facility] Stop: 07/28/23 17:59 Last Admin: 06/28/23 18:08 Dose: Not Given Guaifenesin (Guaifenesin 600 Mg Tabcr) 600 mg PO Q12 [facility] Stop: 07/28/23 20:59 Last Admin: 06/29/23 07:46 Dose: 600 mg Ceftriaxone Sodium 1,000 mg/ (Dextrose) 50 mls @ 100 mls/hr IV Q24H [facility]; Protocol Stop: 07/04/23 10:44 Last Infusion: 06/29/23 12:48 Dose: Infused Lisinopril (Lisinopril 20 Mg Tab) 20 mg PO QAM [facility] Stop: 07/29/23 05:14 Last Admin: 06/29/23 08:39 Dose: 20 mg Menthol (Cough Drop (Sugar Free) Marcella 24 Marcella/1 Box) 1 marcella BUCCAL Q6H PRN PRN Reason: Sore Throat Stop: 07/28/23 13:51 Miscellaneous (Doxylamine -Order Awaiting Action) 1 each N/A QS [facility] Stop: 07/29/23 00:00 Last Admin: 06/29/23 15:22 Dose: Not Given Multivitamins (Multivitamin Tab) 1 tab PO DAILY [facility] Stop: 07/29/23 08:59 Last Admin: 06/29/23 07:46 Dose: 1 tab Ondansetron HCl (Ondansetron Inj 2 Mg/Ml 2 Ml Vial) 4 mg IV Q6H PRN PRN Reason: Nausea Stop: 07/28/23 16:08 Last Admin: 06/29/23 08:38 Dose: 4 mg Prednisone (Prednisone 20 Mg Tab) 40 mg PO DAILY [facility] Stop: 07/04/23 08:59 Last Admin: 06/29/23 07:46 Dose: 40 mg Umeclidinium/Vilanterol (Umeclidinium/Vilanterol 62.5/25mcg 7 Puffs/Inhaler) 1 puffs INH DAILY [facility] Stop: 07/28/23 13:59 Last Admin: 06/29/23 07:45 Dose: 1 puffs
[2023-06-29] MEDS: ENOXAPARIN INJ 40 MG/0.4 ML SYR SQ SCH (17:43)
[2023-06-30] MEDS: ACETAMINOPHEN 325 MG TAB PO PRN ×2 (01:20→19:39)
[2023-06-30] MEDS ORDERED: traMADol HCL 50 MG TABLET PO PRN (03:52)
[2023-06-30] MEDS ORDERED: oxyCODONE HCL IR 5 MG TAB (IMMEDIATE RELEASE) PO STA (05:14)
[2023-06-30] MEDS ORDERED: oxyCODONE HCL IR 5 MG TAB (IMMEDIATE RELEASE) PO PRN (05:14)
[2023-06-30] MEDS ORDERED: oxyCODONE HCL IR 5 MG TAB (IMMEDIATE RELEASE) ONE (05:40)
[2023-06-30] MEDS: ONDANSETRON INJ 2 MG/ML 2 ML VIAL IV PRN (05:42)
[2023-06-30] MEDS: MoRPHine SULFATE 4 MG/ML 1 ML CARP\\VIAL IV PRN ×2 (06:27→13:05)
[2023-06-30 06:36] LABS: Basophils # (auto) 0.04 K/uL (0.00-0.20); Basophils % (auto) 0.4 %; Eosinophils # (auto) 0.03 K/uL (0.00-0.50); Eosinophils % (auto) 0.3 %; Hematocrit (blood only) 38.2 % (37.0-47.0); Hemoglobin 13.5 g/dl (12.0-16.0); Immature Granulocytes # (auto) 0.02 K/uL (0.01-0.20); Immature Granulocytes % (auto) 0.2 %; Lymphocytes # (auto) 3.67 K/uL (1.20-3.40); Lymphocytes % (auto) 37.9 %; Mean Corpuscular Hemoglobin 32.4 pg (25.0-34.0); Mean Corpuscular Hgb Conc 35.3 g/dL (32.0-36.0); Mean Corpuscular Volume 91.6 fL (80.0-100.0); Monocytes # (auto) 0.78 K/uL (0.11-0.59); Monocytes % (auto) 8.1 %; Neutrophils # (auto) 5.14 K/uL (1.40-6.50); Neutrophils % (auto) 53.1 %; Platelet Count 252 K/uL (130-400); RDW Coefficient of Variation 12.6 % (11.5-14.5); Red Blood Count 4.17 M/uL (4.20-5.40); White Blood Count 9.68 K/ul (4.8-10.8)
[2023-06-30 06:51] LABS: BUN Creatinine Ratio 22.7 (10-20); Creatinine Clr Calc Pharmacy 42.3 ml/min; Est GFR (African American) 56.5 ml/min; Est GFR (Non-African American) 48.7 ml/min; Potassium 3.7 mmol/L (3.5-5.1)
--- NOTE | 2023-06-30 08:05 | CT Scan Report ---
CT OF THE ABDOMEN AND PELVIS WITHOUT CONTRAST CLINICAL HISTORY: Right flank pain. COMPARISON STUDY: No previous studies for comparison. TECHNIQUE: Axial images of the abdomen and pelvis were obtained without IV contrast. Images were revi ewed in the axial, sagittal, and coronal planes. Automated exposure control was utilized for the elise dy. A dose lowering technique was utilized adhering to the principles of ALARA. FINDINGS: No renal, ureteral or bladder calculi are present. There is moderate left renal scarring. L ayering hyperdense material gallbladder is noted. The gallbladder is mildly distended. There is no ad jacent stranding. Unenhanced images of the liver, spleen, adrenal glands and pancreas are unremarkabl e. There is no biliary or pancreatic ductal dilatation. The appendix is not visualized. There is sigm oid diverticulosis. No evidence for acute diverticulitis. No evidence for a bowel obstruction. There is no ascites. No lymphadenopathy is present. No fluid collections are present. There is moderate aor toiliac atherosclerotic plaque. IMPRESSION: 1. No urinary calculi or hydronephrosis. 2. No bowel obstruction. Sigmoid diverticulosis. No evidence for acute diverticulitis. 3. Layering hyperdense material within the gallbladder. This may represent vicarious excretion of con trast. Mild gallbladder distention without adjacent stranding. The findings do not strongly suggest a cute cholecystitis however correlation with right upper quadrant pain is recommended. If present, ult rasound is suggested. ACT 112: Negative or not required by law. Electronically signed by: Aditya Murguia M.D. 06/30/2023 8:02 AM
[2023-06-30] MEDS: UMECLIDINIUM/VILANTEROL 62.5/25MCG 7 PUFFS/INHALER INH SCH (08:15)
[2023-06-30] MEDS: predniSONE 20 MG TAB PO SCH (08:15)
[2023-06-30] MEDS: guaiFENesin 600 MG TABCR PO SCH ×2 (08:15→19:39)
[2023-06-30] MEDS: ASPIRIN 81 MG ECTAB PO SCH (08:15)
[2023-06-30] MEDS: AZITHROMYCIN 250 MG TAB PO SCH (08:15)
[2023-06-30] MEDS: lisinopril 20 MG TAB PO SCH (08:15)
[2023-06-30] MEDS: MULTIVITAMIN TAB PO SCH (08:15)
[2023-06-30] MEDS: busPIRone 5 MG TAB PO SCH ×2 (08:15→19:38)
[2023-06-30] MEDS: CALCIUM 600MG + VIT D 400 IU TAB PO SCH ×2 (08:15→19:39)
[2023-06-30] MEDS: cefTRIAXone SODIUM 1,000 MG in DEXTROSE 5 % MINI-B 50 ML IV SCH (10:43)
--- NOTE | 2023-06-30 14:12 | Hospitalist Progress Note ---
Date of Service June 30, 2023 Assessment & Plan (1) Hypertension: (2) LYNNETTE (generalized anxiety disorder): (3) Tobacco abuse: Plan Ms Lexis Garner is a 78 year old woman with past medical history remarkable for hypertension, current tobacco use, HLD, osteopenia who is admitted due to acute COPD exacerbation iso rhino/enterovirus, as well as noted elevated troponin. Patient denies any stable/angina like symptoms at this time, but has multiple CAD risk factors that warrant likely OP stress test. Imaging also revealed emphysematous changes which raise concern of overlying exacerbation based upon presentation and exam. #Acute COPD exacerbation #Rhino/entervirus infection -Baseline chronic cough with morning sputum production, OTTO/breathless with hurrying/rushed activity, occasional chest tightness with wheezing -Increased cough and sputum production for 3 days, chest tightness and wheezing, OTTO with limited activity -Noted improvement with nebs and steroid -Contact/droplet precautions for rhino/enterovirus infection -Symptomatic management, mucinx BID ayan while inpatient -Flutter valve -Start LAMA/LABA, encourage OP PFTs and follow up -Duonebs -Prednisone burst 40mg total 5 days -Azithromycin 500mg x 3 days per GOLD guidelines -Encoruage smoking cessation -Has been feeling better since admission and since initiation of the bronchodilators and steroid -We will continue with current management -Clinically much better without any wheezing and no shortness of breath at rest and she has been saturating normally on room air UTI UA suggestive of infection Started on intravenous ceftriaxone Await cultures-urine culture is growing gram-negative bacilli and the sensitivities pending Elevated Troponin, likely demand iso infection; however, notable risk factors #Left anterior Fascicular block -Elevated CAD risk factors: current tobacco use, HTN, HLD, ?diabetes (elevated glucose) Serial cardiac enzymes did not show any evidence of ACS Denies any cardiac symptoms -Ordered A1C and lipid panel -5.7 -Echo showed-LV systolic function is normal with EF 60 to 65%, LA mildly dilated, interatrial septum bows towards right atrium consistent with elevated right atrial pressure, no intra or atrial shunt and there is mild TR -No reported angina symptoms per history, would consider OP stress testing with PCP #Hypertension -continue lisinopril 10mg qam -Blood pressure remains controlled #General anxiety -Request to trial medication, after long discussion, agreed upon buspar -Start buspar 5mg BID, ensure follow up for uptitration if necessary #Osteopenia -Never completed dexa scan -Start VitD-Ca supplement -Vit D in am -Encourage OP DEXA #Pulmonary Nodule #Tobacco Use -13 pack years (1-4 cigarettes per day since ~15 years old_ -3mm Left Lower Lobe pulm nodule -Will need 12 month follow up as high risk with on going tobacco use based upon fleischner criteria -Declined nicotine patch DVT lovenox bowel prn Replace lytes prn Admit to med/surg tele given elevated troponin Likely discharge in a day or 2 and will need to have stable O2 saturation test at discharge Admission and Anticipated Discharge Date Admission Date: June 30, 2023 Subjective 06/29/2023 The patient was seen and examined in medical telemetry unit She was admitted with COPD exacerbation and has been feeling much better with initial treatment Also complained of some pain in the right side of the upper back- noted to have UTI on UA examination Otherwise denies any urinary symptoms and her problem with bowel habit 06/30/2023 The patient was seen and examined in medical telemetry unit She has been feeling much better and the pain in the right side of flank/lower chest wall has resolved Denies any wheezing and no shortness of breath at rest Denies any problem with voiding and or bowel movement Review of Systems Review of Systems: All systems reviewed and are unremarkable except as noted below Physical Exam Physical Exam: Lying in bed comfortably Constitutional: well developed, well nourished, + ill appearing and average body habitus Eyes: PERRL, conjunctivae normal, anicteric sclerae ENMT: external ear and nose normal, oropharynx normal Neck: trachea midline, no thyromegaly Respiratory: no respiratory distress Auscultation: + diminished lung sounds, + crackles (Occasional crackles at the bases) and + wheezes Cardiovascular: Rate/Rhythm: regular rate and regular rhythm; not tachycardic Heart Sounds: normal S1 and normal S2; no murmur Extremities: no edema Gastrointestinal (Abdomen): Inspection/Auscultation: normal bowel sounds; abdomen not distended Percussion/Palpation: abdomen soft; abdomen nontender Musculoskeletal: No acute arthritis involving any joint Neurologic: normal touch/pain/proprioception and moves all extremities; no focal motor deficits Lymphatic: no cervical or axillary lymphadenopathy Results & Data Results & Data Vital Signs (Past 12 Hours) Vital Signs Temp Pulse Pulse Resp BP Pulse Ox O2 Del Method 06/30/23 11:11 36.4 C L 52 L 20 136/54 L 93 Room Air 06/30/23 09:02 54 L 06/30/23 07:45 36.5 C 61 20 144/68 H 96 Room Air 06/30/23 07:35 Room Air 06/30/23 03:47 36.7 C 58 L 20 174/78 H 95 Room Air Laboratory Results Short CBC 06/30/23 Range/Units 05:25 WBC 9.68 (4.8-10.8) K/ul Hgb 13.5 (12.0-16.0) g/dl Hct 38.2 (37.0-47.0) % Plt Count 252 (130-400) K/uL BMP 06/30/23 05:25 Sodium 132 L Potassium 3.7 Chloride 99 Carbon Dioxide 24 BUN 25 H Creatinine 1.10 Glucose 112 H Calcium 10.0 Medications Administered Current Inpatient Medications Acetaminophen (Acetaminophen 325 Mg Tab) 650 mg PO Q4H PRN PRN Reason: pain/fever Stop: 07/28/23 16:08 Last Admin: 06/30/23 01:20 Dose: 650 mg Albuterol (Albut/Ipratrop 3mg/0.5mg Neb 3 Ml Vial) 3 ml NEB Q4R PRN; Protocol PRN Reason: Shortness Of Breath Or Wheezing Stop: 07/29/23 11:29 Aspirin (Aspirin 81 Mg Ectab) [facility] [place] Stop[facility] 07/29/23 08:59 Last Admin: 06/30/23 08:15 Dose: 81 mg Azithromycin (Azithromycin 250 Mg Tab) [facility] [place] Stop: 07/04/23 09:01 Last Admin: 06/30/23 08:15 Dose: 500 mg Buspirone HCl (Buspirone 5 Mg Tab) 5 mg PO BID [facility] Stop: 07/28/23 20:59 Last Admin: 06/30/23 08:15 Dose: 5 mg Calcium/Vitamin D (Calcium 600mg + Vit D 400 Iu Tab) 1 tab PO BID [facility] Stop: 07/28/23 20:59 Last Admin: 06/30/23 08:15 Dose: 1 tab Enoxaparin Sodium (Enoxaparin Inj 40 Mg/0.4 Ml Syr) 40 mg SQ Q24H [facility] Stop: 07/28/23 17:59 Last Admin: 06/29/23 17:43 Dose: Not Given Guaifenesin (Guaifenesin 600 Mg Tabcr) 600 mg PO Q12 [facility] Stop: 07/28/23 20:59 Last Admin: 06/30/23 08:15 Dose: 600 mg Ceftriaxone Sodium 1,000 mg/ (Dextrose) 50 mls @ 100 mls/hr IV Q24H [facility]; Protocol Stop: 07/04/23 10:44 Last Infusion: 06/30/23 11:14 Dose: Infused Lisinopril (Lisinopril 20 Mg Tab) 20 mg PO QAM [facility] Stop: 07/29/23 05:14 Last Admin: 06/30/23 08:15 Dose: 20 mg Menthol (Cough Drop (Sugar Free) Marcella 24 Marcella/1 Box) 1 marcella BUCCAL Q6H PRN PRN Reason: Sore Throat Stop: 07/28/23 13:51 Miscellaneous (Doxylamine -Order Awaiting Action) 1 each N/A QS [facility] Stop: 07/29/23 00:00 Last Admin: 06/30/23 08:08 Dose: Not Given Morphine Sulfate (Morphine Sulfate 4 Mg/Ml 1 Ml Carp\Vial) 4 mg IV Q4H PRN PRN Reason: Pain Stop: 07/14/23 05:14 Last Admin: 06/30/23 13:05 Dose: 4 mg Multivitamins (Multivitamin Tab) 1 tab PO DAILY [facility] Stop: 07/29/23 08:59 Last Admin: 06/30/23 08:15 Dose: 1 tab Ondansetron HCl (Ondansetron Inj 2 Mg/Ml 2 Ml Vial) 4 mg IV Q6H PRN PRN Reason: Nausea Stop: 07/28/23 16:08 Last Admin: 06/30/23 05:42 Dose: 4 mg Oxycodone HCl (Oxycodone Hcl Ir 5 Mg Tab (Immediate Release)) 5 mg PO Q4H PRN PRN Reason: Pain Stop: 07/14/23 05:13 Prednisone (Prednisone 20 Mg Tab) 40 mg PO DAILY [facility] Stop: 07/04/23 08:59 Last Admin: 06/30/23 08:15 Dose: 40 mg Umeclidinium/Vilanterol (Umeclidinium/Vilanterol 62.5/25mcg 7 Puffs/Inhaler) 1 puffs INH DAILY [facility] Stop: 07/28/23 13:59 Last Admin: 06/30/23 08:15 Dose: 1 puffs
[2023-06-30] MEDS: ENOXAPARIN INJ 40 MG/0.4 ML SYR SQ SCH (17:21)
[2023-07-01] MEDS: ACETAMINOPHEN 325 MG TAB PO PRN (02:58)
[2023-07-01] MEDS: lisinopril 20 MG TAB PO SCH (08:09)
[2023-07-01] MEDS: ASPIRIN 81 MG ECTAB PO SCH (08:09)
[2023-07-01] MEDS: busPIRone 5 MG TAB PO SCH (08:09)
[2023-07-01] MEDS: guaiFENesin 600 MG TABCR PO SCH (08:09)
[2023-07-01] MEDS: AZITHROMYCIN 250 MG TAB PO SCH (08:09)
[2023-07-01] MEDS: CALCIUM 600MG + VIT D 400 IU TAB PO SCH (08:09)
[2023-07-01] MEDS: predniSONE 20 MG TAB PO SCH (08:10)
[2023-07-01] MEDS: MULTIVITAMIN TAB PO SCH (08:10)
[2023-07-01] MEDS: UMECLIDINIUM/VILANTEROL 62.5/25MCG 7 PUFFS/INHALER INH SCH (08:10)
[2023-07-01] MEDS: cefTRIAXone SODIUM 1,000 MG in DEXTROSE 5 % MINI-B 50 ML IV SCH (10:07)
--- NOTE | 2023-07-01 11:59 | Hospitalist Progress Note ---
Date of Service July 01, 2023 Assessment & Plan (1) Hypertension: (2) LYNNETTE (generalized anxiety disorder): (3) Tobacco abuse: Plan Ms Lexis Garner is a 78 year old woman with past medical history remarkable for hypertension, current tobacco use, HLD, osteopenia who is admitted due to acute COPD exacerbation iso rhino/enterovirus, as well as noted elevated troponin. Patient denies any stable/angina like symptoms at this time, but has multiple CAD risk factors that warrant likely OP stress test. Imaging also revealed emphysematous changes which raise concern of overlying exacerbation based upon presentation and exam. #Acute COPD exacerbation #Rhino/entervirus infection -Baseline chronic cough with morning sputum production, OTTO/breathless with hurrying/rushed activity, occasional chest tightness with wheezing -Increased cough and sputum production for 3 days, chest tightness and wheezing, OTTO with limited activity -Noted improvement with nebs and steroid -Contact/droplet precautions for rhino/enterovirus infection -Symptomatic management, mucinx BID ayan while inpatient -Flutter valve -Start LAMA/LABA, encourage OP PFTs and follow up -Duonebs -Prednisone burst 40mg total 5 days -Azithromycin 500mg x 3 days per GOLD guidelines -Encoruage smoking cessation -Has been feeling better since admission and since initiation of the bronchodilators and steroid -We will continue with current management -Clinically much better without any wheezing and no shortness of breath at rest and she has been saturating normally on room air -No more respiratory symptoms of wheezing, shortness of breath or cough and she has been ambulating in the hallway without any difficulties UTI UA suggestive of infection Started on intravenous ceftriaxone Await cultures-urine culture is growing gram-negative bacilli and the sensitivities pending Urine culture came back positive for E. coli which is pansensitive She will be discharged on oral Keflex to finish the course for a total of 7 days. Elevated Troponin, likely demand iso infection; however, notable risk factors #Left anterior Fascicular block -Elevated CAD risk factors: current tobacco use, HTN, HLD, ?diabetes (elevated glucose) Serial cardiac enzymes did not show any evidence of ACS Denies any cardiac symptoms -Ordered A1C and lipid panel -5.7 -Echo showed-LV systolic function is normal with EF 60 to 65%, LA mildly dilated, interatrial septum bows towards right atrium consistent with elevated right atrial pressure, no intra or atrial shunt and there is mild TR -No reported angina symptoms per history, would consider OP stress testing with PCP -Has an appointment with the primary care doctor tomorrow and she is going to keep it #Hypertension -continue lisinopril 10mg qam -Blood pressure remains controlled #General anxiety -Request to trial medication, after long discussion, agreed upon buspar -Start buspar 5mg BID, ensure follow up for uptitration if necessary #Osteopenia -Never completed dexa scan -Start VitD-Ca supplement -Vit D in am -Encourage OP DEXA #Pulmonary Nodule #Tobacco Use -13 pack years (1-4 cigarettes per day since ~15 years old_ -3mm Left Lower Lobe pulm nodule -Will need 12 month follow up as high risk with on going tobacco use based upon fleischner criteria -Declined nicotine patch DVT lovenox bowel prn Replace lytes prn Admit to med/surg tele given elevated troponin Likely discharge in a day or 2 and will need to have stable O2 saturation test at discharge Will be discharged home this afternoon Admission and Anticipated Discharge Date Admission Date: June 30, 2023 Subjective 06/29/2023 The patient was seen and examined in medical telemetry unit She was admitted with COPD exacerbation and has been feeling much better with initial treatment Also complained of some pain in the right side of the upper back- noted to have UTI on UA examination Otherwise denies any urinary symptoms and her problem with bowel habit 06/30/2023 The patient was seen and examined in medical telemetry unit She has been feeling much better and the pain in the right side of flank/lower chest wall has resolved Denies any wheezing and no shortness of breath at rest Denies any problem with voiding and or bowel movement 07/01/2023 The patient was seen and examined in medical telemetry unit She has been feeling much better and denies any shortness of breath at rest She does not have any abdominal pain, any nausea or vomiting or any problem with voiding She wants to go home today Review of Systems Review of Systems: All systems reviewed and are unremarkable except as noted below Physical Exam Physical Exam: Lying in bed comfortably Constitutional: well developed, well nourished, + ill appearing and average body habitus Eyes: PERRL, conjunctivae normal, anicteric sclerae ENMT: external ear and nose normal, oropharynx normal Neck: trachea midline, no thyromegaly Respiratory: no respiratory distress Auscultation: + diminished lung sounds , + crackles (Occasional crackles at the bases) and + wheezes Cardiovascular: Rate/Rhythm: regular rate and regular rhythm; not tachycardic Heart Sounds: normal S1 and normal S2; no murmur Extremities: no edema Gastrointestinal (Abdomen): Inspection/Auscultation: normal bowel sounds; abdomen not distended Percussion/Palpation: abdomen soft; abdomen nontender Musculoskeletal: No acute arthritis involving any of the joints. Neurologic: normal touch/pain/proprioception and moves all extremities; no focal motor deficits Lymphatic: no cervical or axillary lymphadenopathy Results & Data Results & Data Vital Signs (Past 12 Hours) Vital Signs Temp Pulse Pulse Resp BP BP Pulse Ox 07/01/23 11:18 37.1 C 74 20 126/73 95 07/01/23 08:42 68 07/01/23 07:42 36.3 C L 61 18 170/77 H 96 07/01/23 03:25 36.8 C 54 L 18 144/79 H 97 O2 Del Method 07/01/23 11:18 Room Air 07/01/23 08:42 07/01/23 07:42 Room Air 07/01/23 03:25 Room Air Medications Administered Current Inpatient Medications Acetaminophen (Acetaminophen 325 Mg Tab) 650 mg PO Q4H PRN PRN Reason: pain/fever Stop: 07/28/23 16:08 Last Admin: 07/01/23 02:58 Dose: 650 mg Albuterol (Albut/Ipratrop 3mg/0.5mg Neb 3 Ml Vial) 3 ml NEB Q4R PRN; Protocol PRN Reason: Shortness Of Breath Or Wheezing Stop: 07/29/23 11:29 Aspirin (Aspirin 81 Mg Ectab) [facility] [place] Stop: 07/29/23 08:59 Last Admin: 07/01/23 08:09 Dose: 81 mg Azithromycin (Azithromycin 250 Mg Tab) 500 [facility] [place] Stop: 07/04/23 09:01 Last Admin: 07/01/23 08:09 Dose: 500 mg Buspirone HCl (Buspirone 5 Mg Tab) 5 mg PO BID [facility] Stop: 07/28/23 20:59 Last Admin: 07/01/23 08:09 Dose: 5 mg Calcium/Vitamin D (Calcium 600mg + Vit D 400 Iu Tab) 1 tab PO BID [facility] Stop: 07/28/23 20:59 Last Admin: 07/01/23 08:09 Dose: 1 tab Enoxaparin Sodium (Enoxaparin Inj 40 Mg/0.4 Ml Syr) 40 mg SQ Q24H [facility] Stop: 07/28/23 17:59 Last Admin: 06/30/23 17:21 Dose: Not Given Guaifenesin (Guaifenesin 600 Mg Tabcr) 600 mg PO Q12 [facility] Stop: 07/28/23 20:59 Last Admin: 07/01/23 08:09 Dose: 600 mg Ceftriaxone Sodium 1,000 mg/ (Dextrose) 50 mls @ 100 mls/hr IV Q24H [facility]; Protocol Stop: 07/04/23 10:44 Last Infusion: 07/01/23 10:47 Dose: Infused Lisinopril (Lisinopril 20 Mg Tab) 20 mg PO QAM [facility] Stop: 07/29/23 05:14 Last Admin: 07/01/23 08:09 Dose: 20 mg Menthol (Cough Drop (Sugar Free) Marcella 24 Marcella/1 Box) 1 marcella BUCCAL Q6H PRN PRN Reason: Sore Throat Stop: 07/28/23 13:51 Miscellaneous (Doxylamine -Order Awaiting Action) 1 each N/A QS [facility] Stop: 07/29/23 00:00 Last Admin: 07/01/23 08:07 Dose: Not Given Morphine Sulfate (Morphine Sulfate 4 Mg/Ml 1 Ml Carp\Vial) 4 mg IV Q4H PRN PRN Reason: Pain Stop: 07/14/23 05:14 Last Admin: 06/30/23 13:05 Dose: 4 mg Multivitamins (Multivitamin Tab) 1 tab PO DAILY [facility] Stop: 07/29/23 08:59 Last Admin: 07/01/23 08:10 Dose: 1 tab Ondansetron HCl (Ondansetron Inj 2 Mg/Ml 2 Ml Vial) 4 mg IV Q6H PRN PRN Reason: Nausea Stop: 07/28/23 16:08 Last Admin: 06/30/23 05:42 Dose: 4 mg Oxycodone HCl (Oxycodone Hcl Ir 5 Mg Tab (Immediate Release)) 5 mg PO Q4H PRN PRN Reason: Pain Stop: 07/14/23 05:13 Prednisone (Prednisone 20 Mg Tab) 40 mg PO DAILY [facility] Stop: 07/04/23 08:59 Last Admin: 07/01/23 08:10 Dose: 40 mg Umeclidinium/Vilanterol (Umeclidinium/Vilanterol 62.5/25mcg 7 Puffs/Inhaler) 1 puffs INH DAILY [facility] Stop: 07/28/23 13:59 Last Admin: 07/01/23 08:10 Dose: 1 puffs
--- NOTE | 2023-07-02 09:02 | Discharge Summary ---
Date of Service July 02, 2023 Admission HPI Per Admitting Provider Ms Lexis Garner is a 78 year old woman with past medical history remarkable for hypertension, current tobacco use, HLD, osteopenia who presented to [facility] due to SOB, chest congestion, and URI symptoms. Patient states that over the course of the last week, mostly the last 3 days, she has experienced increased cough, sputum production, chest tightness and wheezing. She states that she has a chronic cough, notably worse in mornings with white/green sputum production. She also notes that she occasionally is breathless on exertion, but contributed it to aging. She states she has smoked 1-4 cigarettes daily since age 15. She also endorses "high strung" personality and notable anxiety/worry. She states she has tried discussing with provider, but has historically been placed on SSRI then subsequently taken off--for which she states she doesn't clearly know why. Patient would like to trial something as she feels anxious but wishes to trial an agent without addictive properties or overly sedating. Patient denies any conversations historically about her cholesterol or glucose levels, or discussing lifestyle modifications. She denies any chest pain, palpitations, intermittent nausea, diaphoresis, or edema or other concerning features. In the ED, vitals were notable for BP of 160-180s, HR 68-70s, and O2 sat high 90s on RA. Imaging revealed mild cardiac enlargement with mild emphysema, as well as 3mm pulm nodule. Dilated pulm trunk at 3.6 cm suggestive of PHTN. Negative for PE. 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 for further evaluation and management of .... Admission Exam Per Admitting Provider Physical Exam: GENERAL APPEARANCE: AxOx4, generally well-appearing female HEENT: NC, AT. MMM. EOMI, clear conjunctiva, oropharynx clear. NECK: Supple without lymphadenopathy. No stiffness or restricted ROM. HEART: Normal rate and regular rhythm, normal S1/S1, no m/r/g LUNGS: scattered wheezing, decreased peripheral sounds, no distress ABDOMEN: Soft, nontender, nondistended with good bowel sounds heard. BACK: No CVAT, no obvious deformity. EXTREMITIES: Without cyanosis, clubbing or edema. NEUROLOGICAL: Grossly nonfocal. Alert and oriented, moving all 4 extremities. CN not formally tested but appear grossly intact. Principal Diagnosis COPD exacerbation, acute UTI, tobacco use disorder, LYNNETTE Discharge Exam Lying in bed comfortably Constitutional well developed, well nourished, + ill appearing and average body habitus Eyes PERRL, conjunctivae normal, anicteric sclerae ENMT external ear and nose normal, oropharynx normal Neck trachea midline, no thyromegaly Respiratory no respiratory distress Auscultation: + diminished lung sounds, + crackles (Occasional crackles at the bases) and + wheezes Cardiovascular Rate/Rhythm: regular rate and regular rhythm; not tachycardic Heart Sounds: normal S1 and normal S2; no murmur Extremities: no edema Gastrointestinal (Abdomen) Inspection/Auscultation: normal bowel sounds; abdomen not distended Percussion/Palpation: abdomen soft; abdomen nontender Neurologic normal touch/pain/proprioception and moves all extremities; no focal motor deficits Lymphatic no cervical or axillary lymphadenopathy Discharge Data Allergies Allergy/AdvReac Type Severity Reaction Status Date / Time No Known Allergies Allergy Mild Unverified 06/28/23 10:22 Consultations 06/28/23 12:02 ED Decision to Admit Stat Ordered Studies 06/28/23 10:13 CT angio chest PE protocol Stat 06/30/23 03:53 CT Abd and Pelvis [CT abd pelvis wo con] Stat Hospital Course (1) Hypertension: (2) LYNNETTE (generalized anxiety disorder): (3) Tobacco abuse: Plan Ms Lexis Garner is a 78 year old woman with past medical history remarkable for hypertension, current tobacco use, HLD, osteopenia who is admitted due to acute COPD exacerbation iso rhino/enterovirus, as well as noted elevated troponin. Patient denies any stable/angina like symptoms at this time, but has multiple CAD risk factors that warrant likely OP stress test. Imaging also revealed emphysematous changes which raise concern of overlying exacerbation based upon presentation and exam. #Acute COPD exacerbation #Rhino/entervirus infection -Baseline chronic cough with morning sputum production, OTTO/breathless with hurrying/rushed activity, occasional chest tightness with wheezing -Increased cough and sputum production for 3 days, chest tightness and wheezing, OTTO with limited activity -Noted improvement with nebs and steroid -Contact/droplet precautions for rhino/enterovirus infection -Symptomatic management, mucinx BID ayan while inpatient -Flutter valve -Start LAMA/LABA, encourage OP PFTs and follow up -Duonebs -Prednisone burst 40mg total 5 days -Azithromycin 500mg x 3 days per GOLD guidelines -Encoruage smoking cessation -Has been feeling better since admission and since initiation of the bronchodilators and steroid -We will continue with current management -Clinically much better without any wheezing and no shortness of breath at rest and she has been saturating normally on room air -No more respiratory symptoms of wheezing, shortness of breath or cough and she has been ambulating in the hallway without any difficulties UTI UA suggestive of infection Started on intravenous ceftriaxone Await cultures-urine culture is growing gram-negative bacilli and the sensitivities pending Urine culture came back positive for E. coli which is pansensitive She will be discharged on oral Keflex to finish the course for a total of 7 days. Elevated Troponin, likely demand iso infection; however, notable risk factors #Left anterior Fascicular block -Elevated CAD risk factors: current tobacco use, HTN, HLD, ?diabetes (elevated glucose) Serial cardiac enzymes did not show any evidence of ACS Denies any cardiac symptoms -Ordered A1C and lipid panel -5.7 -Echo showed-LV systolic function is normal with EF 60 to 65%, LA mildly dilated, interatrial septum bows towards right atrium consistent with elevated right atrial pressure, no intra or atrial shunt and there is mild TR -No reported angina symptoms per history, would consider OP stress testing with PCP -Has an appointment with the primary care doctor tomorrow and she is going to keep it #Hypertension -continue lisinopril 10mg qam -Blood pressure remains controlled #General anxiety -Request to trial medication, after long discussion, agreed upon buspar -Start buspar 5mg BID, ensure follow up for uptitration if necessary #Osteopenia -Never completed dexa scan -Start VitD-Ca supplement -Vit D in am -Encourage OP DEXA #Pulmonary Nodule #Tobacco Use -13 pack years (1-4 cigarettes per day since ~15 years old_ -3mm Left Lower Lobe pulm nodule -Will need 12 month follow up as high risk with on going tobacco use based upon fleischner criteria -Declined nicotine patch DVT lovenox bowel prn Replace lytes prn Admit to med/surg tele given elevated troponin Likely discharge in a day or 2 and will need to have stable O2 saturation test at discharge Will be discharged home this afternoon Total Time Total Time Spent Total Time Spent (In Minutes): 35 minutes Discharge Plan Discharge Items Patient Disposition: Home - Self-Care Reason For Visit: SOB Discharge Diagnosis: COPD exacerbation, acute UTI, tobacco use disorder, LYNNETTE Condition on Discharge: Good Activity: Resume your previous activity Non-emergency contact: Primary Care Provider Call non-emergency contact if: you have any medication questions and your symptoms worsen Follow-up/Referrals: Nas Velasquez MD [Primary Care Provider] - (She has an appointment with her PCP tomorrow as she is telling) Diet: Heart Healthy Addtl Attending Provider Instructions: Please take precautions to avoid fall Finish the course of antibiotic as advised Try to drink more fluid Take your other medications as advised. The dose of your lisinopril is increased for better control of her blood pressure Please keep appointment with your healthcare providers Pending Studies at Discharge: No Stand-Alone Forms: [facility] CADsurf, Smoking Cessation Medications and DC Order Prescriptions: New lisinopril 20 mg Tablet 20 mg PO QAM Qty: 30 0RF prednisone 20 mg Tablet 40 mg PO DAILY 3 Days Qty: 6 0RF cephalexin 500 mg capsule 500 mg PO Q8H 7 Days Qty: 21 0RF Continued multivitamin Tablet 1 tab PO DAILY Qty: 0 aspirin 81 mg Tablet,Delayed Release (Dr/Ec) 81 mg PO QAM Qty: 0 docusate sodium 100 mg Capsule 100 mg PO TID Qty: 0 Sleep Aid (doxylamine) 25 mg Tablet 50 mg PO HS Discontinued lisinopril 10 mg tablet 10 mg PO QAM Discharge Orders: Discharge Order (Routine); Ordered 07/01/23 Ordered By: Owen Mcclendon Admission Data Admit Date/Time: 06/30/23 10:36 Attending Provider: Owen Mcclendon Admit Provider: Sarah Bah Primary Care Provider: Nas Velasquez Other Providers: Sarah Bah Other Interventions: Discharge Summary Assessment (RN) Last Done: 07/01/23 12:09
== END 2023-07-01 12:50 | disposition home or self-care (01) | DRG 191 ==
LOC: EDINP 08:36 → ED 08:36 → SUATTDRO 12:45 → 2W 16:10

== ENCOUNTER 2023-07-11 00:19 | Inpatient (IN) ==
[2023-07-11] MEDS ORDERED: KETOROLAC 30 MG/ML VIAL IV ONE (00:29)
--- NOTE | 2023-07-11 00:32 | Emergency Department Note ---
Impression & Plan WILBER (acute kidney injury), Non-ST elevation ND (NSTEMI), Acute pain associated with herpes zoster ED Provider Note HISTORY OF PRESENT ILLNESS: Patient is a 78-year-old female presenting for right-sided chest pain. Patient was seen 48 hours ago and diagnosed with shingles. She is complaining of pain over this area. Reports that the pain started "acting up" at 8 PM. She took a dose of Tylenol and her [place] without any improvement in her symptoms. She states that pain is continuous and a burning sensation. She denies any fevers. Denies any shortness of breath. Denies any nausea or vomiting. Denies any abdominal pain. She states she has been taking the Valtrex as prescribed. ROS: as above PHYSICAL EXAM: Constitutional: Patient appears in no acute distress. HENT: Head: Normocephalic and atraumatic. Eyes: EOMI, PERRL Mouth/Throat: Mucous membranes moist. Neck: Trachea midline. Neck supple. Cardiovascular: RRR, No murmurs, rubs or gallops. Intact distal pulses. Pulmonary/Chest: No respiratory distress. Breath sounds clear and equal bilaterally. No wheezes or rales. Abdominal: Abdomen soft, no tenderness, rebound or guarding. Musculoskeletal: No edema, tenderness or deformity noted. Skin: Warm and dry. Very minimal erythema extending from the right mid back following the dermatome and wrapping around under the right breast. Psychiatric: Appropriate mood and affect for situation. Neurological: Alert and keenly responsive. CN II-XII grossly intact, moving al l extremities equally and fully. MDM: - Vitals signs showed hypertension - History obtained via patient. Patient presents with right-sided chest pain. Patient was diagnosed with shingles 48 hours ago. She is currently complaining of pain in the area where she has a rash. She states that the pain got significantly worse around 8 PM. She took a dose of Tylenol and [place] without any improvement in her symptoms. Denies any fevers. Denies any shortness of breath. Denies any nausea or vomiting. - Chronic conditions affecting care: HTN; HLD; LYNNETTE - Differential diagnoses include, but are not limited to: neuropathic pain; ACS; pneumonia; PE - Order placed for continuous cardiac monitoring. At this time, monitor showed rate of 70 bpm with normal sinus rhythm, per my interpretation. - External medical records reviewed. EMS run sheet was reviewed. Patient was vitally stable in route. No medications were given prehospital. - EKG reviewed by myself showed normal sinus rhythm. Rate 65 bpm. QTc 397. No acute ischemic changes. - Laboratory workup interpreted by myself showed normal WBC; stable electrolytes; WILBER (Cr 1.54 - baseline 1.1); elevated troponin (22) - CXR negative for pneumonia, per my interpretation - Patient initially given 30 mg IV toradol. On reassessment, she is still complaining of significant pain along the rash distribution. Given 50 mcg IV fentanyl. - Troponin elevation likely secondary to WILBER. EKG is non-ischemic. - Discussion was had with delinquency prevention social worker about patient's case and need for admission - Hospitalist consulted for admission - Patient admitted to [facility] for further evaluation and management. ASSESSMENT AND PLAN: Diagnosis: WILBER; NSTEMI; acute pain associated with herpes zoster Plan: admit Past Med/Surg History Medical History (Updated 07/11/23 @ 02:50 by Emily Watts MD) LYNNETTE (generalized anxiety disorder) HLD (hyperlipidemia) Hypertension Pneumonia Tobacco abuse Family History Other Cancer Social History Smoking Status: Former smoker Tobacco Type: Cigarettes Cigarettes Per Day: 1 pack/week; Second Hand Exposure: Yes; Do You Dip or Chew Tobacco: No; Hx Alcohol Use: No Hx Substance Use: No Preferred Language: Brazilian Communication Ability: Effective Metal Model Builder Required: No Beliefs That Will Affect Care: None Current Living Situation: Alone Current Living Situation Comment: lives alone, independent current occupational status: retired Feels Safe at Home: Yes Assistive Devices: Denture - Upper and Denture - Lower Allergies Allergies Allergy/AdvReac Type Severity Reaction Status Date / Time No Known Allergies Allergy Mild Verified 07/11/23 00:54 Home Meds Home Medications Medication Instructions Recorded Confirmed aspirin 81 mg tablet,delayed 81 mg PO QAM ##0 01/27/13 07/11/23 release docusate sodium 100 mg capsule 100 mg PO TID ##0 01/27/13 07/11/23 multivitamin 1 tab PO DAILY #0 tabs 01/27/13 07/11/23 doxylamine succinate 25 mg tablet 50 mg PO HS 07/24/18 07/11/23 (Sleep Aid (doxylamine)) albuterol sulfate 90 mcg/actuation 2 puff inhalation Q4 PRN Shortness 07/05/23 07/11/23 aerosol inhaler Of Breath Or Wheezing escitalopram oxalate 10 mg tablet 10 mg PO DAILY 07/05/23 07/11/23 Previous Rx's Medication Instructions Recorded lisinopril 20 mg tablet 20 mg PO QAM #30 tabs 07/01/23 hydrocodone 5 mg-acetaminophen 325 1 tab PO Q6H PRN pain #20 tabs 07/05/23 mg tablet valacyclovir 1 gram tablet 1,000 mg PO TID 7 days #21 tabs 07/05/23 (Valtrex) Results & Data (ED) Vital Signs Vital Signs - 24 hr 07/11/23 00:27 07/11/23 00:32 07/11/23 00:32 Temperature 36.6 C Temperature Source Oral Pulse Rate 72 71 71 Pulse Rate [Apical] Pulse Rhythm Regular Regular Pulse Rhythm [Apical] Pulse Strength Normal Pulse Strength [Apical] Respiratory Rate 16 16 Respiratory Effort / Characteristics Non-Labored Spontaneous Respiratory Depth Normal Respiratory Pattern Blood Pressure 177/85 H Blood Pressure [Right Arm] Blood Pressure Mean 115 Blood Pressure Mean [Right Arm] Pulse Oximetry 97 97 Oxygen Delivery Method Room Air Room Air Sepsis Recent Fever Within 48 Hours No Sepsis New/Unexplained Change in Mental Status No Sepsis Action Taken by Nursing No Action Required 07/11/23 00:32 07/11/23 00:30 07/11/23 01:00 Temperature 36.6 C Temperature Source Oral Pulse Rate 66 60 Pulse Rate [Apical] 71 Pulse Rhythm Pulse Rhythm [Apical] Regular Pulse Strength Pulse Strength [Apical] Normal Respiratory Rate 16 18 27 H Respiratory Effort / Characteristics Non-Labored Respiratory Depth Normal Respiratory Pattern Regular Blood Pressure 177/85 H 173/89 H Blood Pressure [Right Arm] 177/85 H Blood Pressure Mean 115 117 Blood Pressure Mean [Right Arm] 115 Pulse Oximetry 97 98 96 Oxygen Delivery Method Room Air Sepsis Recent Fever Within 48 Hours Sepsis New/Unexplained Change in Mental Status Sepsis Action Taken by Nursing 07/11/23 01:30 07/11/23 02:00 07/11/23 02:01 Temperature Temperature Source Pulse Rate 61 62 63 Pulse Rate [Apical] Pulse Rhythm Pulse Rhythm [Apical] Pulse Strength Pulse Strength [Apical] Respiratory Rate 24 22 19 Respiratory Effort / Characteristics Respiratory Depth Respiratory Pattern Blood Pressure 175/91 H 206/87 H 192/95 H Blood Pressure [Right Arm] Blood Pressure Mean 119 126 127 Blood Pressure Mean [Right Arm] Pulse Oximetry 97 97 98 Oxygen Delivery Method Sepsis Recent Fever Within 48 Hours Sepsis New/Unexplained Change in Mental Status Sepsis Action Taken by Nursing Laboratory Data 07/11/23 00:44 07/11/23 00:44 Lab Results 07/11/23 07/11/23 Range/Units 00:44 00:44 WBC 8.75 (4.8-10.8) K/ul RBC 3.89 L (4.20-5.40) M/uL Hgb 12.5 (12.0-16.0) g/dl Hct 36.9 L (37.0-47.0) % MCV 94.9 (80.0-100.0) fL MCH 32.1 (25.0-34.0) pg MCHC 33.9 (32.0-36.0) g/dL RDW Std Deviation 42.7 (36.4-46.3) fL RDW Coeff of Kodak 12.3 (11.5-14.5) % Plt Count 225 (130-400) K/uL MPV 9.6 (9.4-12.4) fL Immature Gran % (Auto) 0.2 % Neut % (Auto) 44.1 % Lymph % (Auto) 44.8 % [place]pie % (Auto) 8.3 % Eos % (Auto) 1.9 % Baso % (Auto) 0.7 % Neut # (Auto) 3.85 (1.40-6.50) K/uL Lymph # (Auto) 3.92 H (1.20-3.40) K/uL [place]pie # (Auto) 0.73 H (0.11-0.59) K/uL Eos # (Auto) 0.17 (0.00-0.50) K/uL Baso # (Auto) 0.06 (0.00-0.20) K/uL Immature Gran # (Auto) 0.02 (0.01-0.20) K/uL Sodium 136 (136-145) mmol/L Potassium 4.4 (3.5-5.1) mmol/L Chloride 105 (98-107) mmol/L Carbon Dioxide 23 (21-32) mmol/L Anion Gap 8 (3-11) BUN 33 H (6-23) mg/dl Creatinine 1.54 H (0.6-1.2) mg/dl Est Cr Clr Drug Dosing 29.1 ml/min Est GFR ( Amer) 37.6 ml/min Est GFR (Non-Af Amer) 32.4 ml/min BUN/Creatinine Ratio 21.4 H (10-20) Glucose 101 H (70-99(Fasting)) mg/dl Calcium 9.6 (8.6-10.3) mg/dl Total Bilirubin 0.5 (0.2-1.0) mg/dl AST 18 (13-39) U/L ALT 15 (7-52) U/L Alkaline Phosphatase 32 L (34-104) U/L Troponin I High Sens 22.0 H (0-14) pg/ml Total Protein 6.8 (6.0-8.3) gm/dl Albumin 4.1 (3.4-5.0) gm/dl Globulin 2.7 (2.5-4.0) gm/dl Albumin/Globulin Ratio 1.5 (0.9-2) Administered Medications Discontinued Medications Fentanyl Citrate (Fentanyl Citrate Pf 100 Mcg/2 Ml Vial) 50 mcg IV NOW STA Stop: 07/11/23 02:30 Last Admin: 07/11/23 02:37 Dose: 50 mcg Documented By: PARISA Sodium Chloride (Nss) 1,000 mls @ 999 mls/hr IV .Q1H1M ONE Stop: 07/11/23 02:24 Last Infusion: 07/11/23 02:39 Dose: 0 mls/hr Documented By: Admin: 07/11/23 01:33 Dose: 999 mls/hr Documented By: PARISA Ketorolac Tromethamine (Ketorolac 30 Mg/Ml Vial) 30 mg IV NOW ONE Stop: 07/11/23 00:30 Last Admin: 07/11/23 00:43 Dose: 30 mg Documented By: PARISA Discharge Plan Visit Data Chief Complaint: Illness Stated Complaint: General Pain, Shingles ED Provider: Emily Watts Discharge Problem: WILBER (acute kidney injury), Non-ST elevation ND (NSTEMI), Acute pain associated with herpes zoster Forms Stand Alone Forms: My [facility] Prescriptions Prescriptions: No Action multivitamin Tablet 1 tab PO DAILY Qty: 0 aspirin 81 mg Tablet,Delayed Release (Dr/Ec) 81 mg PO QAM Qty: 0 docusate sodium 100 mg Capsule 100 mg PO TID Qty: 0 Sleep Aid (doxylamine) 25 mg Tablet 50 mg PO HS albuterol sulfate 90 mcg/actuation HFA aerosol inhaler 2 puff INHALATION Q4 PRN (Reason: Shortness Of Breath Or Wheezing) escitalopram oxalate 10 mg tablet 10 mg PO DAILY hydrocodone-acetaminophen 5-325 mg tablet 1 tab PO Q6H PRN (Reason: pain) Qty: 20 0RF valacyclovir [Valtrex] 1 gram tablet 1,000 mg PO TID 7 Days Qty: 21 0RF lisinopril 20 mg Tablet 20 mg PO QAM Qty: 30 0RF Referrals Referrals: Nas Velasquez MD [Primary Care Provider] -
[2023-07-11 01:04] LABS: Basophils # (auto) 0.06 K/uL (0.00-0.20); Basophils % (auto) 0.7 %; Eosinophils # (auto) 0.17 K/uL (0.00-0.50); Eosinophils % (auto) 1.9 %; Hematocrit (blood only) 36.9 % (37.0-47.0); Hemoglobin 12.5 g/dl (12.0-16.0); Immature Granulocytes # (auto) 0.02 K/uL (0.01-0.20); Immature Granulocytes % (auto) 0.2 %; Lymphocytes # (auto) 3.92 K/uL (1.20-3.40); Lymphocytes % (auto) 44.8 %; Mean Corpuscular Hemoglobin 32.1 pg (25.0-34.0); Mean Corpuscular Hgb Conc 33.9 g/dL (32.0-36.0); Mean Corpuscular Volume 94.9 fL (80.0-100.0); Mean Platelet Volume 9.6 fL (9.4-12.4); Monocytes # (auto) 0.73 K/uL (0.11-0.59); Monocytes % (auto) 8.3 %; Neutrophils # (auto) 3.85 K/uL (1.40-6.50); Neutrophils % (auto) 44.1 %; Platelet Count 225 K/uL (130-400); RDW Coefficient of Variation 12.3 % (11.5-14.5); RDW Standard Deviation 42.7 fL (36.4-46.3); Red Blood Count 3.89 M/uL (4.20-5.40); White Blood Count 8.75 K/ul (4.8-10.8)
[2023-07-11 01:20] LABS: Albumin Globulin Ratio 1.5 (0.9-2); Albumin Level 4.1 gm/dl (3.4-5.0); BUN Creatinine Ratio 21.4 (10-20); Bilirubin,Total 0.5 mg/dl (0.2-1.0); Calcium 9.6 mg/dl (8.6-10.3); Creatinine Clr Calc Pharmacy 29.1 ml/min; Est GFR (African American) 37.6 ml/min; Est GFR (Non-African American) 32.4 ml/min; Globulin 2.7 gm/dl (2.5-4.0); Potassium 4.4 mmol/L (3.5-5.1); Total Protein 6.8 gm/dl (6.0-8.3)
[2023-07-11] MEDS ORDERED: SODIUM CHLORIDE 0.9% 1,000 ML IV ONE (01:24)
[2023-07-11] MEDS ORDERED: fentaNYL citrate PF 100 MCG/2 ML VIAL IV STA (02:29)
[2023-07-11] MEDS ORDERED: HYDROmorphone INJ 0.5 MG/0.5 ML SYR IV STA (03:31)
--- NOTE | 2023-07-11 03:46 | History & Physical Report ---
Date of Service July 11, 2023 Assessment & Plan (1) Shingles: Plan: 78-year-old female with past med significant COPD, lung nodules, hypertension, anxiety presents with pain from the shingles and also found to WILBER and mild elevation troponin. Shingles Diagnosed couple of days ago Under the right breast extending to the back Failed outpatient pain control with Canadensis We will do IV Dilaudid as needed for severe pain and Canadensis for moderate pain Continue Valtrex Monitor WILBER Presented with creatinine 1.5 Creatinine was 1.1 at the time of discharge few days back We will hold lisinopril Gentle fluids Follow repeat labs in a.m. Mild elevation of troponin No chest pain or shortness of breath No acute findings on EKG Mostly demand ischemia or from WILBER We will follow serial enzymes Had echo recent last admission If any concern will get echo and cardiac consult. COPD Continue home inhalers Currently stable Anxiety On Lexapro Hypertension Holding lisinopril for now IV hydralazine as needed restart Lisnopril as soon as possible. We will monitor DVT prophylaxis Heparin subcu Disposition Med/telemetry Full code History of Present Illness Chief Complaint: Pain from shingles Primary Care Provider: Nas eVlasquez MD 78-year-old female with past med significant COPD, lung nodules, hypertension, anxiety presents with pain from the shingles and also found to WILBER and mild elevation troponin. Patient was recently in the hospital with COPD exacerbation and entero-/rhinovirus infection. Says stopped smoking since last admission. Was in the ER couple of days ago and was diagnosed with shingles and was placed on Valtrex and also Canadensis. Patient says the pain is not controlled on current home meds and came to the ER again. Denies any fevers. Has some nausea from the pain. No chest pain or shortness of breath. No cough. No headaches. No dizziness. No blurred visions. No earache. No runny nose. No sore throat. Appetite is okay. No abdominal pain. Normal bowel and bladder movements. Currently resting comfortably and hemodynamic stable. Past medical history. As mentioned above Past surgical history no surgical history on file. Social history. Used to smoke pot quarter pack a day for 61 years quit since last admission in June 2023. No alcohol use. No drug use. Family history. Cancer Allergies Allergy/AdvReac Type Severity Reaction Status Date / Time No Known Allergies Allergy Mild Verified 07/11/23 00:54 Home Medications Medication Instructions Recorded Confirmed Type aspirin 81 mg tablet,delayed 81 mg PO QAM ##0 01/27/13 07/11/23 History release docusate sodium 100 mg capsule 100 mg PO TID ##0 01/27/13 07/11/23 History multivitamin 1 tab PO DAILY #0 tabs 01/27/13 07/11/23 History doxylamine succinate 25 mg tablet 50 mg PO HS 07/24/18 07/11/23 History (Sleep Aid (doxylamine)) lisinopril 20 mg tablet 20 mg PO QAM #30 tabs 07/01/23 07/11/23 Rx albuterol sulfate 90 mcg/actuation 2 puff inhalation Q4 PRN Shortness 07/05/23 07/11/23 History aerosol inhaler Of Breath Or Wheezing escitalopram oxalate 10 mg tablet 10 mg PO DAILY 07/05/23 07/11/23 History hydrocodone 5 mg-acetaminophen 325 1 tab PO Q6H PRN pain #20 tabs 07/05/23 07/11/23 Rx mg tablet valacyclovir 1 gram tablet 1,000 mg PO TID 7 days #21 tabs 07/05/23 07/11/23 Rx (Valtrex) Past Med/Surg History Medical History (Updated 07/11/23 @ 02:50 by Emily Watts MD) LYNNETTE (generalized anxiety disorder) HLD (hyperlipidemia) Hypertension Pneumonia Tobacco abuse Family History Other Cancer Social History Smoking Status: Former smoker Tobacco Type: Cigarettes Cigarettes Per Day: 1 pack/week; Smoking End Date: 06/28/23; Second Hand Exposure: Yes; Do You Dip or Chew Tobacco: No; Tobacco Cessation Education Requested by Patient: No Hx Alcohol Use: No Hx Substance Use: No Preferred Language: Wolof Communication Ability: Effective Shape Hand Required: No Beliefs That Will Affect Care: None Current Living Situation: Alone Current Living Situation Comment: Lives in fpc apt current occupational status: retired Other Information That Helps Us Care for You: No Feels Safe at Home: Yes Assistive Devices: Denture - Upper and Denture - Lower Review of Systems Review of Systems: All systems reviewed & are unremarkable except as noted in HPI & below Physical Exam Physical Exam: General- Not in distress Head- atraumatic Eyes- PERRL. ENT- oropharynx clear Neck- supple, no JVD. Lungs- clear to auscultation, no wheezing or crackles. Heart- regular rhythm; no murmur, no gallop. Abdomen- normal bowel sounds, soft, nontender, no distension. Extremities- no pretibial edema, no erythema seen. Neuro- alert, oriented x 3; PERRL, no facial palsy; no dysarthria; moves extremities. Skin- mild macular rash seen under right breast extending in dermatomal fashion to the back. Results & Data Results & Data Vital Signs (Past 12 Hours) Vital Signs Temp Pulse Pulse Resp BP BP Pulse Ox 07/11/23 03:30 66 21 96 07/11/23 03:00 63 17 94 07/11/23 02:30 67 21 197/91 H 97 07/11/23 02:01 63 19 192/95 H 98 07/11/23 02:00 62 22 206/87 H 97 07/11/23 01:30 61 24 175/91 H 97 07/11/23 01:00 60 27 H 173/89 H 96 07/11/23 00:30 66 18 177/85 H 98 07/11/23 00:32 36.6 C 71 16 177/85 H 97 07/11/23 00:32 71 16 97 07/11/23 00:32 36.6 C 71 16 177/85 H 97 07/11/23 00:27 72 O2 Del Method 07/11/23 03:30 07/11/23 03:00 07/11/23 02:30 07/11/23 02:01 07/11/23 02:00 07/11/23 01:30 07/11/23 01:00 07/11/23 00:30 07/11/23 00:32 Room Air 07/11/23 00:32 Room Air 07/11/23 00:32 Room Air 07/11/23 00:27 Diagnostic Findings Laboratory Results WBC 8.75 K/ul (4.8-10.8) 07/11/23 00:44 RBC 3.89 M/uL (4.20-5.40) L 07/11/23 00:44 Hgb 12.5 g/dl (12.0-16.0) 07/11/23 00:44 Hct 36.9 % (37.0-47.0) L 07/11/23 00:44 MCV 94.9 fL (80.0-100.0) 07/11/23 00:44 MCH 32.1 pg (25.0-34.0) 07/11/23 00:44 MCHC 33.9 g/dL (32.0-36.0) 07/11/23 00:44 RDW Std Deviation 42.7 fL (36.4-46.3) 07/11/23 00:44 RDW Coeff of Kodak 12.3 % (11.5-14.5) 07/11/23 00:44 Plt Count 225 K/uL (130-400) 07/11/23 00:44 MPV 9.6 fL (9.4-12.4) 07/11/23 00:44 Immature Gran % (Auto) 0.2 % 07/11/23 00:44 Neut % (Auto) 44.1 % 07/11/23 00:44 Lymph % (Auto) 44.8 % 07/11/23 00:44 [place] % (Auto) 8.3 % 07/11/23 00:44 Eos % (Auto) 1.9 % 07/11/23 00:44 Baso % (Auto) 0.7 % 07/11/23 00:44 Neut # (Auto) 3.85 K/uL (1.40-6.50) 07/11/23 00:44 Lymph # (Auto) 3.92 K/uL (1.20-3.40) H 07/11/23 00:44 [place] # (Auto) 0.73 K/uL (0.11-0.59) H 07/11/23 00:44 Eos # (Auto) 0.17 K/uL (0.00-0.50) 07/11/23 00:44 Baso # (Auto) 0.06 K/uL (0.00-0.20) 07/11/23 00:44 Immature Gran # (Auto) 0.02 K/uL (0.01-0.20) 07/11/23 00:44 Sodium 136 mmol/L (136-145) 07/11/23 00:44 Potassium 4.4 mmol/L (3.5-5.1) 07/11/23 00:44 Chloride 105 mmol/L (98-107) 07/11/23 00:44 Carbon Dioxide 23 mmol/L (21-32) 07/11/23 00:44 Anion Gap 8 (3-11) 11 00:44 BUN 33 mg/dl (6-23) H 07/11/23 00:44 Creatinine 1.54 mg/dl (0.6-1.2) H 07/11/23 00:44 Est Cr Clr Drug Dosing 29.1 ml/min 11 00:44 Est GFR ( Amer) 37.6 ml/min 07/11/23 00:44 Est GFR (Non-Af Amer) 32.4 ml/min 11 00:44 BUN/Creatinine Ratio 21.4 (10-20) H 07/11/23 00:44 Glucose 101 mg/dl (70-99(Fasting)) H 07/11/23 00:44 Calcium 9.6 mg/dl (8.6-10.3) 07/11/23 00:44 Total Bilirubin 0.5 mg/dl (0.2-1.0) 07/11/23 00:44 AST 18 U/L (13-39) 07/11/23 00:44 ALT 15 U/L (7-52) 07/11/23 00:44 Alkaline Phosphatase 32 U/L (34-104) L 07/11/23 00:44 Troponin I High Sens 22.0 pg/ml (0-14) H 07/11/23 00:44 Total Protein 6.8 gm/dl (6.0-8.3) 07/11/23 00:44 Albumin 4.1 gm/dl (3.4-5.0) 07/11/23 00:44 Globulin 2.7 gm/dl (2.5-4.0) 07/11/23 00:44 Albumin/Globulin Ratio 1.5 (0.9-2) 07/11/23 00:44 ECG Additional Comments: ECG. Sinus rhythm with short MN rate of 65. Left axis deviation. Nonspecific ST abnormalities. Code Status & VTE Plan VTE Prophylaxis Plan VTE Prophylaxis will be ordered: Yes (1) Shingles Herpes zoster complications: without complications Qualified Code(s): B02.9 - Zoster without complications
[2023-07-11] MEDS ORDERED: HYDROmorphone INJ 0.5 MG/0.5 ML SYR IV PRN (04:47)
[2023-07-11] MEDS ORDERED: ALBUTEROL HFA 8 GM INHALER INH PRN (04:47)
[2023-07-11] MEDS ORDERED: SODIUM CHLORIDE 0.9% 1,000 ML IV SCH (04:47)
[2023-07-11] MEDS ORDERED: ACETAMINOPHEN 325 MG TAB PO PRN (04:47)
[2023-07-11] MEDS ORDERED: POLYETHYLENE (MIRALAX) 17 GM PACK PO PRN (04:47)
[2023-07-11] MEDS ORDERED: NITROGLYCERIN SL 0.4 MG/TAB TAB SL PRN (04:47)
--- NOTE | 2023-07-11 07:06 | XRay Report ---
XR chest 1V portable CLINICAL HISTORY: Right-sided chest pain. COMPARISON STUDY: Chest radiograph and chest CT June 28, 2023. FINDINGS: Lung volumes are normal. Lungs are clear. There is no pneumothorax or pleural effusion. Car diac size is normal. Mediastinal contours are normal. There is no evidence for pulmonary edema. IMPRESSION: No acute cardiopulmonary findings. ACT 112: Negative or not required by law. Electronically signed by: Aditya Murguia M.D. 07/11/2023 7:04 AM
[2023-07-11 07:31] LABS: Basophils # (auto) 0.05 K/uL (0.00-0.20); Basophils % (auto) 0.7 %; Eosinophils # (auto) 0.17 K/uL (0.00-0.50); Eosinophils % (auto) 2.3 %; Hematocrit (blood only) 34.5 % (37.0-47.0); Hemoglobin 11.7 g/dl (12.0-16.0); Immature Granulocytes # (auto) 0.01 K/uL (0.01-0.20); Immature Granulocytes % (auto) 0.1 %; Lymphocytes # (auto) 3.15 K/uL (1.20-3.40); Lymphocytes % (auto) 43.3 %; Mean Corpuscular Hemoglobin 32.2 pg (25.0-34.0); Mean Corpuscular Hgb Conc 33.9 g/dL (32.0-36.0); Mean Platelet Volume 9.5 fL (9.4-12.4); Monocytes # (auto) 0.65 K/uL (0.11-0.59); Monocytes % (auto) 8.9 %; Neutrophils # (auto) 3.25 K/uL (1.40-6.50); Neutrophils % (auto) 44.7 %; Platelet Count 205 K/uL (130-400); RDW Coefficient of Variation 12.1 % (11.5-14.5); RDW Standard Deviation 42.3 fL (36.4-46.3); Red Blood Count 3.63 M/uL (4.20-5.40); White Blood Count 7.28 K/ul (4.8-10.8)
[2023-07-11 07:47] LABS: BUN Creatinine Ratio 20.8 (10-20); Calcium 8.7 mg/dl (8.6-10.3); Creatinine Clr Calc Pharmacy 35.7 ml/min; Est GFR (African American) 46.2 ml/min; Est GFR (Non-African American) 39.8 ml/min; Magnesium 1.7 mg/dl (1.7-2.4); Potassium 4.3 mmol/L (3.5-5.1)
[2023-07-11 07:54] LABS: Troponin I High Sensitivity 26.9 pg/ml (0-14)
[2023-07-11] MEDS: HEPARIN SOD 5,000 UNIT/0.5 ML VIAL SQ SCH ×2 (07:57→21:11)
[2023-07-11] MEDS: HYDROCODONE/ACETAMOPHEN 5/325MG TAB PO PRN ×2 (08:02→14:52)
[2023-07-11] MEDS: hydrALAZINE HCL 20 MG/ML VIAL IV PRN ×2 (08:03→16:21)
[2023-07-11] MEDS: ASPIRIN 81 MG ECTAB PO SCH (08:03)
[2023-07-11] MEDS: DOCUSATE SODIUM 100 MG CAP PO SCH ×3 (08:03→21:11)
[2023-07-11] MEDS: MULTIVITAMIN TAB PO SCH (08:04)
[2023-07-11] MEDS: valACYclovir HCL 500 MG TABLET PO SCH ×2 (08:04→21:11)
[2023-07-11] MEDS: ESCITALOPRAM OXALATE 10 MG TAB PO SCH (08:04)
--- NOTE | 2023-07-11 08:52 | Communication Note ---
Date of Service: July 11, 2023 Pt seen in the AM. States that she is still in pain. On exam, pain is located to an area under her right breast. Skin exam notes an almost healed rash with very few raised lesions. No visible fluid filled lesions. Added daily pregabalin/lyrica for herpetic neuralgia relief. Pt also receiving prn [place] and Dilaudid. Will continue to monitor.
--- NOTE | 2023-07-11 08:53 | Electrocardiogram Report ---
Test Reason : Blood Pressure : / mmHG Vent. Rate : 065 BPM Atrial Rate : 065 BPM P-R Int : 106 ms QRS Dur : 094 ms QT Int : 382 ms P-R-T Axes : 054 -46 058 degrees QTc Int : 397 ms Sinus rhythm Left axis deviation Nonspecific ST abnormality Abnormal ECG When compared with ECG of 28-JUN-2023 09:35, QT has shortened Confirmed by Mark Tijerina ([id number]) on 07/11/2023 8:53:08 AM Referred By: REFERRED SELF Confirmed By:Dashawn Tijerina
[2023-07-11] MEDS ORDERED: PREGABALIN 25 MG CAP PO SCH (21:00)
[2023-07-11] MEDS: PREGABALIN 75 MG CAP PO SCH (21:11)
[2023-07-12 05:22] LABS: Basophils # (auto) 0.05 K/uL (0.00-0.20); Basophils % (auto) 0.8 %; Eosinophils # (auto) 0.25 K/uL (0.00-0.50); Hematocrit (blood only) 35.7 % (37.0-47.0); Hemoglobin 12.2 g/dl (12.0-16.0); Immature Granulocytes # (auto) 0.01 K/uL (0.01-0.20); Immature Granulocytes % (auto) 0.2 %; Lymphocytes # (auto) 2.37 K/uL (1.20-3.40); Lymphocytes % (auto) 38.3 %; Mean Corpuscular Hemoglobin 32.1 pg (25.0-34.0); Mean Corpuscular Hgb Conc 34.2 g/dL (32.0-36.0); Mean Corpuscular Volume 93.9 fL (80.0-100.0); Mean Platelet Volume 9.6 fL (9.4-12.4); Monocytes # (auto) 0.63 K/uL (0.11-0.59); Monocytes % (auto) 10.2 %; Neutrophils # (auto) 2.87 K/uL (1.40-6.50); Neutrophils % (auto) 46.5 %; Platelet Count 213 K/uL (130-400); RDW Coefficient of Variation 12.3 % (11.5-14.5); RDW Standard Deviation 42.1 fL (36.4-46.3); White Blood Count 6.18 K/ul (4.8-10.8)
[2023-07-12 05:40] LABS: Albumin Globulin Ratio 1.4 (0.9-2); Albumin Level 3.7 gm/dl (3.4-5.0); BUN Creatinine Ratio 17.9 (10-20); Bilirubin,Total 0.8 mg/dl (0.2-1.0); Calcium 9.2 mg/dl (8.6-10.3); Creatinine Clr Calc Pharmacy 39.3 ml/min; Est GFR (African American) 52.4 ml/min; Est GFR (Non-African American) 45.2 ml/min; Globulin 2.6 gm/dl (2.5-4.0); Magnesium 1.8 mg/dl (1.7-2.4); Phosphorus 3.5 mg/dl (2.5-4.9); Potassium 4.8 mmol/L (3.5-5.1); Total Protein 6.3 gm/dl (6.0-8.3)
[2023-07-12] MEDS: MULTIVITAMIN TAB PO SCH (09:00)
[2023-07-12] MEDS: valACYclovir HCL 500 MG TABLET PO SCH (09:00)
[2023-07-12] MEDS: ESCITALOPRAM OXALATE 10 MG TAB PO SCH (09:00)
[2023-07-12] MEDS: DOCUSATE SODIUM 100 MG CAP PO SCH ×2 (09:00→14:07)
[2023-07-12] MEDS: ASPIRIN 81 MG ECTAB PO SCH (09:00)
[2023-07-12] MEDS: PREGABALIN 75 MG CAP PO SCH (09:00)
[2023-07-12] MEDS: HEPARIN SOD 5,000 UNIT/0.5 ML VIAL SQ SCH (11:29)
--- NOTE | 2023-07-12 14:15 | Discharge Summary ---
Discharge Summary Date of Service July 12, 2023 Notes For Next Care Provider Started on lyrica 75mg BID, pcp follow up recommended for continued refills or wean as needed Consider outpatient cardiology follow up for elevated troponin. Continued monitoring of kidney function, within normal limits on discharge Medication Changes From Visit Started on lyrica 75mg BID Admission HPI Per Admitting Provider 78-year-old female with past med significant COPD, lung nodules, hypertension, anxiety presents with pain from the shingles and also found to WILBER and mild elevation troponin. Patient was recently in the hospital with COPD exacerbation and entero-/rhinovirus infection. Says stopped smoking since last admission. Was in the ER couple of days ago and was diagnosed with shingles and was placed on Valtrex and also [place]. Patient says the pain is not controlled on current home meds and came to the ER again. Denies any fevers. Has some nausea from the pain. No chest pain or shortness of breath. No cough. No headaches. No dizziness. No blurred visions. No earache. No runny nose. No sore throat. Appetite is okay. No abdominal pain. Normal bowel and bladder movements. Currently resting comfortably and hemodynamic stable. Past medical history. As mentioned above Past surgical history no surgical history on file. Social history. Used to smoke pot quarter pack a day for 61 years quit since last admission in June 2023. No alcohol use. No drug use. Family history. Cancer Admission Exam Per Admitting Provider General- Not in distress Head- atraumatic Eyes- PERRL. ENT- oropharynx clear Neck- supple, no JVD. Lungs- clear to auscultation, no wheezing or crackles. Heart- regular rhythm; no murmur, no gallop. Abdomen- normal bowel sounds, soft, nontender, no distension. Extremities- no pretibial edema, no erythema seen. Neuro- alert, oriented x 3; PERRL, no facial palsy; no dysarthria; moves extremities. Skin- mild macular rash seen under right breast extending in dermatomal fashion to the back. Principal Dx & Hospital Course #1 = Principal Diagnosis (1) Shingles: 78-year-old female with past med Hx significant for COPD, lung nodules, hyper tension, anxiety admitted with pain from the shingles and also found to have an WILBER and mild elevation of troponins. Shingles Herpetic Neuralgia Diagnosed a few days before admission Rash under the right breast extending to the back Failed outpatient pain control with [place] Treated with prn IV Dilaudid and prn [place], last doses Jul 11. Transitioned to Lyrica 75mg BID with relief, pt asking to go home. Discharged with Lyrica with PCP follow up for continued refills as needed/wean if pt desires. Continue Valtrex. PCP follow up WILBER Presented with creatinine 1.5 Home lisinopril held, received gentle hydration Cr wnl on discharge at 1.17 Mild elevation of troponin hs-trop at 35 on admission, peaked to 48 before down trending. No chest pain or shortness of breath No acute findings on EKG Mostly demand ischemia or from WILBER Had recent echo last admission- LA mildly dilated but no acute changes Stable, consider outpatient cardiology follow up COPD Continue home inhalers Currently stable Anxiety On Lexapro Stable Hypertension Held lisinopril as above for WILBER. Resume after discharge Discharge Exam General: Alert, oriented. No acute distress Skin: healed rash under right breast, no visible vesicles Psych: Appropriate mood and affect Neuro: No gross deficits HEENT: NC/AT, Chest: Nontender to palpation. CV: RRR, Normal s1, s2. No murmurs appreciated Resp: Breath sounds clear bilaterally, no increased effort of breathing. Abdomen: Soft, nontender, nondistended. Extremities: No edema in lower extremities bilaterally. Updated Medication List Medication Instructions Recorded Confirmed Type aspirin 81 mg tablet,delayed 81 mg PO QAM ##0 01/27/13 07/11/23 History release docusate sodium 100 mg capsule 100 mg PO TID ##0 01/27/13 07/11/23 History multivitamin 1 tab PO DAILY #0 tabs 01/27/13 07/11/23 History doxylamine succinate 25 mg tablet 50 mg PO HS 07/24/18 07/11/23 History (Sleep Aid (doxylamine)) lisinopril 20 mg tablet 20 mg PO QAM #30 tabs 07/01/23 07/11/23 Rx albuterol sulfate 90 mcg/actuation 2 puff inhalation Q4 PRN Shortness 07/05/23 07/11/23 History aerosol inhaler Of Breath Or Wheezing escitalopram oxalate 10 mg tablet 10 mg PO DAILY 10/26/23 11/01/23 History hydrocodone 5 mg-acetaminophen 325 1 tab PO Q6H PRN pain #20 tabs 07/05/23 07/11/23 Rx mg tablet pregabalin 75 mg capsule (Lyrica) 75 mg PO BID #60 caps 07/12/23 Rx Hospital Stay Data Consultations 07/11/23 02:41 ED Decision to Admit Stat Diagnostic Imagining Performed Chest X-Ray 07/11/23 00:29 XR chest 1V portable CLINICAL HISTORY: Right-sided chest pain. COMPARISON STUDY: Chest radiograph and chest CT June 28, 2023. FINDINGS: Lung volumes are normal. Lungs are clear. There is no pneumothorax or pleural effusion. Cardiac size is normal. Mediastinal contours are normal. There is no evidence for pulmonary edema. IMPRESSION: No acute cardiopulmonary findings. ACT 112: Negative or not required by law. Electronically signed by: Aditya Murguia M.D. 07/11/2023 7:04 AM Discharge Instructions Given to Patient (Per Discharging Provider) Ms. Garner, you were admitted as you had quite a bit of pain related to your shingles rash. We treated you with pain medications and that improved. In particular you said that the medication Lyrica helped. We are discharging you with that medication to take twice a day. We ask that you keep close follow up with your primary care provider as scheduled for continued refills and further monitoring. This medication is not one that you should just stop taking, the dose has to be decreased slowly before you can stop. If you would like to stop taking it at some point, you can follow up with your primary care provider to help you with that. You were also a bit dehydrated when you were admitted but your kidney function is now back to normal after some fluids. Continue taking your home medications as prescribed including the Valtrex you were on before you came in. Please take care of yourself and it was a pleasure taking care of you while you were here. Total Time Total Time Spent Total Time Spent (In Minutes): > 30 minutes
--- NOTE | 2023-07-12 16:31 | Electrocardiogram Report ---
Test Reason : Blood Pressure : / mmHG Vent. Rate : 068 BPM Atrial Rate : 068 BPM P-R Int : 126 ms QRS Dur : 086 ms QT Int : 412 ms P-R-T Axes : 071 -43 056 degrees QTc Int : 438 ms Sinus rhythm with Premature atrial complexes Left axis deviation Abnormal ECG When compared with ECG of 11-JUL-2023 00:27, Premature atrial complexes are now Present Confirmed by Mark Tijerina ([id number]) on 07/12/2023 4:30:52 PM Referred By: REFERRED SELF Confirmed By:Dashawn Tijerina
== END 2023-07-12 15:32 | disposition home or self-care (01) | DRG 74 ==
LOC: ED 00:19 → 4W 03:30 → SUATTDRO 03:30 → 4W 04:20 → 2W 16:42

== ENCOUNTER 2025-04-27 10:52 | Observation (INO) ==
[2025-04-27 11:44] LABS: Appearance Urine Clear (Clear); Glucose Urine UA Negative (Negative)
[2025-04-27 11:46] LABS: Hematocrit (blood only) 41.6 % (37.0-47.0); Hemoglobin 14.1 g/dl (12.0-16.0); Immature Granulocytes # (auto) 0.02 K/uL (0.01-0.20); Immature Granulocytes % (auto) 0.3 %; Mean Corpuscular Hemoglobin 32.9 pg (25.0-34.0); Mean Corpuscular Volume 97.0 fL (80.0-100.0); Platelet Count 232 K/uL (130-400); RDW Standard Deviation 50.1 fL (36.4-46.3); Red Blood Count 4.29 M/uL (4.20-5.40); White Blood Count 7.03 K/ul (4.8-10.8)
[2025-04-27 11:55] LABS: Epithelial Cell Urine 0-2 /hpf (0-2)
[2025-04-27 12:03] LABS: Alanine Aminotransferase 14 U/L (7-52); Albumin Globulin Ratio 1.2 (0.9-2); Alkaline Phosphatase 47 U/L (34-104); Anion Gap 6 (3-11); Bilirubin,Total 0.5 mg/dl (0.2-1.0); Blood Urea Nitrogen 34 mg/dl (6-23); Calcium 9.8 mg/dl (8.6-10.3); Carbon Dioxide 27 mmol/L (21-32); Chloride 105 mmol/L (98-107); Globulin 3.6 gm/dl (2.5-4.0); Glucose 95 mg/dl (70-99(Fasting)); Potassium 4.9 mmol/L (3.5-5.1); Sodium 138 mmol/L (136-145); Total Protein 7.9 gm/dl (6.0-8.3)
--- NOTE | 2025-04-27 12:31 | XRay Report ---
XR chest 1V portable CLINICAL HISTORY: dizziness COMPARISON STUDY: 07/11/2023 FINDINGS: Heart size and pulmonary vasculature are normal. No consolidation or pleural effusion. No p neumothorax. IMPRESSION: No acute findings. ACT 112: Negative or not required by law. Electronically signed by: Denilson Aparicio M.D. 04/27/2025 12:30 PM
--- NOTE | 2025-04-27 13:06 | Emergency Department Note ---
History of Present Illness General Chief complaint: Dizziness Stated complaint: DIZZY Time Seen by Provider: 04/27/25 12:45 History of Present Illness This is a 79-year-old female that presents to the emergency department via EMS with complaints of "dizziness". The patient notes that earlier today around 7 AM she began feeling dizzy upon standing. Otherwise there is no dizziness. The patient notes that she did have a fall but was able to catch herself. This was around 7 AM. She struck the right arm but notes no pain in that area. She did not strike the head or lose consciousness. The patient is when she is laying in bed at the present time she had no symptoms at all and feels fine. Patient does not however note that she feels "unsteady" with walking. No preceding or current illness. No chest pain or shortness of breath. No fevers or chills. No nausea or vomiting. Patient denies any symptoms when she turns her head to the left or right while seated. Home Medications Medication Instructions Recorded Confirmed Type aspirin 81 mg tablet,delayed 81 mg PO HS ##0 01/27/13 04/27/25 History release docusate sodium 100 mg capsule 100 mg PO QAM ##0 01/27/13 04/27/25 History multivitamin 1 tab PO HS #0 tabs 01/27/13 04/27/25 History albuterol sulfate 90 mcg/actuation 2 puff inhalation Q4H PRN 07/05/23 04/27/25 History aerosol inhaler Shortness Of Breath Or Wheezing escitalopram oxalate 10 mg tablet 10 mg PO QAM 07/05/23 04/27/25 History umeclidinium 62.5 mcg-vilanterol 1 inh inhalation QAM 03/11/25 04/27/25 History 25 mcg/actuation powdr for inhalation (Anoro Ellipta) lisinopril 20 1 tab PO DAILY 04/27/25 04/27/25 History mg-hydrochlorothiazide 25 mg tablet prednisolone acetate 1 % eye 1 drp ophthalmic (eye) UD 04/27/25 04/27/25 History drops,suspension (Pred Forte) triamcinolone acetonide 0.1 % 1 applic topical BID 04/27/25 04/27/25 History topical cream Allergies Allergy/AdvReac Type Severity Reaction Status Date / Time No Known Allergies Allergy Mild Verified 04/07/25 10:58 Past Med/Surg History Problem List (Updated 04/27/25 @ 14:38 by Jluis Aldrich DO) COPD (chronic obstructive pulmonary disease) Hypertension, uncontrolled Benign paroxysmal positional vertigo of right ear Dizziness (Acute) Acute pain associated with herpes zoster (Acute) Non-ST elevation [place] (NSTEMI) (Acute) WILBER (acute kidney injury) (Acute) Enterovirus infection (Acute) HLD (hyperlipidemia) LYNNETTE (generalized anxiety disorder) Hypertension Elevated troponin (Acute) Cigarette smoker (Acute) URI (upper respiratory infection) (Acute) Pneumonia (Acute) Tobacco abuse Mild protein malnutrition Transaminitis Abnormal CT scan, head Sinusitis Pneumonia Medical History NSTEMI (non-ST elevated myocardial infarction) pt denies "never had this" Hx of herpes zoster 2022, no residual effects Hx of hyperlipidemia History of hypertension History of COPD daily and prn inh (rare use of rescue inhaler) Generalized anxiety disorder Surgical History History of cataract surgery right Hx of appendectomy as a teen Hx of colonoscopy Family History Other Cancer No family history of adverse response to anesthesia Social History (Updated 04/27/25 @ 14:30 by Jluis Aldrich DO) Smoking Status: Current every day smoker Tobacco Type: Cigarettes Cigarettes Per Day: 3; Second Hand Exposure: No; Do You Dip or Chew Tobacco: No; Tobacco Cessation Education Requested by Patient: No Hx Alcohol Use: No Hx Substance Use: No Preferred Language: Portuguese Communication Ability: Effective Licensed Marine Engineer Required: No Beliefs That Will Affect Care: None Current Living Situation: Alone Current Living Situation Comment: Lives in [facility] apt current occupational status: retired Other Information That Helps Us Care for You: No Feels Safe at Home: Yes Safety Concerns: Feels Safe At This Time Assistive Devices: Denture - Upper and Denture - Lower Review of Systems A total of 10 systems reviewed and were otherwise negative Physical Exam Vital Signs Vital Signs - 24 hr 04/27/25 11:07 04/27/25 12:06 04/27/25 12:08 Temperature 37 C Temperature Source Temporal Artery Scan Pulse Rate - Lying Pulse Rate - Sitting Pulse Rate - Standing Pulse Rate 52 L 58 L Pulse Rate from SpO2 Sensor Respiratory Rate 20 24 Respiratory Effort / Characteristics Non-Labored Spontaneous Respiratory Depth Normal Respiratory Pattern Regular Blood Pressure - Lying Blood Pressure - Sitting Blood Pressure- Standing Blood Pressure 196/64 H 203/95 H Blood Pressure Mean 108 131 Blood Pressure Position Lying Pulse Oximetry 98 98 Oxygen Delivery Method Room Air Room Air Sepsis Recent Fever Within 48 Hours No Sepsis New/Unexplained Change in Mental Status No Sepsis Action Taken by Nursing No Action Required 04/27/25 12:08 04/27/25 12:11 04/27/25 13:00 Temperature Temperature Source Pulse Rate - Lying Pulse Rate - Sitting Pulse Rate - Standing Pulse Rate 55 L 56 L Pulse Rate from SpO2 Sensor 54 L Respiratory Rate 19 Respiratory Effort / Characteristics Respiratory Depth Respiratory Pattern Blood Pressure - Lying Blood Pressure - Sitting Blood Pressure- Standing Blood Pressure Blood Pressure Mean Blood Pressure Position Pulse Oximetry 98 97 Oxygen Delivery Method Room Air Room Air Sepsis Recent Fever Within 48 Hours Sepsis New/Unexplained Change in Mental Status Sepsis Action Taken by Nursing 04/27/25 13:33 04/27/25 14:00 04/27/25 14:03 Temperature Temperature Source Pulse Rate - Lying 60 Pulse Rate - Sitting 66 Pulse Rate - Standing 77 Pulse Rate 59 L 60 Pulse Rate from SpO2 Sensor 59 L 60 Respiratory Rate 17 22 Respiratory Effort / Characteristics Respiratory Depth Respiratory Pattern Blood Pressure - Lying 177/74 H Blood Pressure - Sitting 174/85 H Blood Pressure- Standing 187/77 H Blood Pressure 172/78 H 174/85 H Blood Pressure Mean 109 114 Blood Pressure Position Pulse Oximetry 97 98 Oxygen Delivery Method Room Air Room Air Sepsis Recent Fever Within 48 Hours Sepsis New/Unexplained Change in Mental Status Sepsis Action Taken by Nursing 04/27/25 14:30 Temperature Temperature Source Pulse Rate - Lying Pulse Rate - Sitting Pulse Rate - Standing Pulse Rate 58 L Pulse Rate from SpO2 Sensor 57 L Respiratory Rate 18 Respiratory Effort / Characteristics Respiratory Depth Respiratory Pattern Blood Pressure - Lying Blood Pressure - Sitting Blood Pressure- Standing Blood Pressure 191/88 H Blood Pressure Mean 122 Blood Pressure Position Pulse Oximetry 99 Oxygen Delivery Method Room Air Sepsis Recent Fever Within 48 Hours Sepsis New/Unexplained Change in Mental Status Sepsis Action Taken by Nursing VITAL SIGNS - Vital signs and nursing notes were reviewed. Hypertensive, otherwise stable and afebrile. GENERAL -79-year-old female appearing her stated age who is in no acute distress. Communicates well with provider and answers questions appropriately. SKIN - Without rashes. No meningeal or petechial rash. HEAD - NC/AT. EYES - PERRL with EOMI bilaterally. Sclera anicteric. EARS - No deformities of external structures noted on gross examination bilaterally. External auditory canals without discharge or otorrhea. Tympanic membranes pearly gutierres without retraction or bulging. No fluid or purulent material visualized behind the TM. Handle of malleus, umbo, cone of light, pars tensa/flaccid all easily visualized. NOSE - Midline and without cyanosis. No epistaxis or purulent drainage noted. Septum midline without deviation or septal hematoma noted. MOUTH/OROPHARYNX - Without perioral cyanosis. Buccal mucosa pink and moist and without leukoplakia. Tongue midline with equal elevation of palate bilaterally. No tonsillar hypertrophy, erythema, or exudates noted. Good dentition noted. NECK - Neck with FROM. Supple to palpation. No lymphadenopathy noted. No nuchal rigidity. LUNGS - Chest wall symmetric without accessory muscle use, intercostals retractions, or central cyanosis. Normal vesicular breath sounds CTA B/L. No wheezes, rales, or rhonchi appreciated. CARDIAC - RRR ABDOMEN - Abdominal contour normal without pulsations or visible masses. BS normoactive all four quadrants. No tenderness, palpable masses, hepatosplenomegaly, or ascites noted. EXTREMITIES - No clubbing or peripheral cyanosis. +5/5 strength noted in UE/LE bilaterally. NEUROLOGIC - Cranial nerves II through XII grossly intact. PSYCH -alert, oriented and pleasant on exam. Course Administered Medications Enoxaparin Sodium (Enoxaparin Inj 40 Mg/0.4 Ml Syr) 40 mg SQ Q24H YARIEL Stop: 05/27/25 16:59 Last Admin: 04/27/25 18:08 Dose: 40 mg Documented By: KOLEP Discontinued Medications Gadobutrol (Gadobutrol 65ml Vial) 6.3 ml IV ONCE ONE Stop: 04/27/25 16:59 Last Admin: 04/27/25 16:59 Dose: 6.3 ml Documented By: NATALY Sodium Chloride (Nss) 500 mls @ 500 mls/hr IV .Q1H ONE Stop: 04/27/25 14:48 Last Infusion: 04/27/25 15:00 Dose: Infused Documented By: Admin: 04/27/25 14:06 Dose: 500 mls/hr Documented By: BETITO Lisinopril (Lisinopril 10 Mg Tab) 10 mg PO NOW STA Stop: 04/27/25 14:33 Last Admin: 04/27/25 14:52 Dose: 10 mg Documented By: BRIAN Meclizine HCl (Meclizine Hcl 25 Mg Tab) 25 mg PO NOW STA Stop: 04/27/25 13:50 Last Admin: 04/27/25 14:27 Dose: 25 mg Documented By: BRIAN Methylprednisolone (Methylprednisolone 125 Mg/2 Ml Vial) 60 mg IV NOW STA Stop: 04/27/25 13:50 Last Admin: 04/27/25 14:27 Dose: 60 mg Documented By: BRIAN Ondansetron HCl (Ondansetron Inj 2 Mg/Ml 2 Ml Vial) 4 mg IV NOW STA Stop: 04/27/25 13:50 Last Admin: 04/27/25 14:30 Dose: Not Given Documented By: BRIAN Medical Decision Making Laboratory Data 04/27/25 11:22 04/27/25 11:22 Lab Results 04/27/25 04/27/25 Range/Units 11:22 11:27 WBC 7.03 (4.8-10.8) K/ul RBC 4.29 (4.20-5.40) M/uL Hgb 14.1 (12.0-16.0) g/dl Hct 41.6 (37.0-47.0) % MCV 97.0 (80.0-100.0) fL MCH 32.9 (25.0-34.0) pg MCHC 33.9 (32.0-36.0) g/dL RDW Std Deviation 50.1 H (36.4-46.3) fL RDW Coeff of [employer] 14.1 (11.5-14.5) % Plt Count 232 (130-400) K/uL MPV 9.8 (9.4-12.4) fL Immature Gran % (Auto) 0.3 % Neut % (Auto) 59.1 % Lymph % (Auto) 30.0 % [place] % (Auto) 8.0 % Eos % (Auto) 2.0 % Baso % (Auto) 0.6 % Neut # (Auto) 4.16 (1.40-6.50) K/uL Lymph # (Auto) 2.11 (1.20-3.40) K/uL [place] # (Auto) 0.56 (0.11-0.59) K/uL Eos # (Auto) 0.14 (0.00-0.50) K/uL Baso # (Auto) 0.04 (0.00-0.20) K/uL Immature Gran # (Auto) 0.02 (0.01-0.20) K/uL Sodium 138 (136-145) mmol/L Potassium 4.9 (3.5-5.1) mmol/L Chloride 105 (98-107) mmol/L Carbon Dioxide 27 (21-32) mmol/L Anion Gap 6 (3-11) BUN 34 H (6-23) mg/dl Creatinine 1.26 H (0.6-1.2) mg/dl Est Cr Clr Drug Dosing Not Reportable eGFR 43.97 BUN/Creatinine Ratio 27.0 H (10-20) Glucose 95 (70-99(Fasting)) mg/dl Calcium 9.8 (8.6-10.3) mg/dl Magnesium 1.8 (1.7-2.4) mg/dl Total Bilirubin 0.5 (0.2-1.0) mg/dl AST 21 (13-39) U/L ALT 14 (7-52) U/L Alkaline Phosphatase 47 (34-104) U/L Troponin I High Sens 10.0 (0-14) pg/ml Total Protein 7.9 (6.0-8.3) gm/dl Albumin 4.3 (3.4-5.0) gm/dl Globulin 3.6 (2.5-4.0) gm/dl Albumin/Globulin Ratio 1.2 (0.9-2) Urine Color Yellow Urine Appearance Clear (Clear) Urine pH 6.5 (4.5-7.5) Ur Specific [place] 1.015 (1.000-1.030) Urine Protein Negative (Negative) Urine Glucose (UA) Negative (Negative) Urine Ketones Negative (Negative) Urine Blood Trace-intact H (Negative) Urine Nitrite Negative (Negative) Urine Bilirubin Negative (Negative) Urine Urobilinogen Negative (Negative) Ur Leukocyte Esterase Negative (Negative) Urine RBC 0-2 (0-2) /hpf Urine WBC 0-5 (0-5) /hpf Ur Epithelial Cells 0-2 (0-2) /hpf Urine Bacteria None Seen (None Seen) Urine Comment Imaging Data Radiologist's Impression: Chest X-Ray 04/27/25 12:04 XR chest 1V portable CLINICAL HISTORY: dizziness COMPARISON STUDY: 07/11/2023 FINDINGS: Heart size and pulmonary vasculature are normal. No consolidation or pleural effusion. No pneumothorax. IMPRESSION: No acute findings. ACT 112: Negative or not required by law. Electronically signed by: Denilson Aparicio M.D. 04/27/2025 12:[address] 04/27/25 13:02 CT SCAN OF THE BRAIN WITHOUT IV CONTRAST CLINICAL HISTORY: Dizziness COMPARISON STUDY: CT of the brain dated 07/24/2018. TECHNIQUE: Unenhanced axial CT scan of the brain is performed from the vertex to the skull base. Images are reviewed in the axial, sagittal, coronal planes. A dose lowering technique was utilized adhering to the principles of ALARA. CT DOSE: 625.8 mGy.cm FINDINGS: Brain parenchyma: There is age-related involutional change noting mild subcortical and periventricular microangiopathic disease. There is no hemorrhage, mass effect, or evidence of acute territorial ischemia by CT criteria. Gutierres-white matter differentiation is preserved. No extra-axial fluid collection is seen. Ventricles, sulci, cisterns: Prominent secondary to involutional change. Intracranial vasculature: There is atherosclerotic calcification of the cavernous carotid and vertebral arteries. Calvarium: Unremarkable. Sinuses and mastoids: The visualized paranasal sinuses are clear. The mastoid air cells are well pneumatized. Cerumen is noted in the right external auditory canal. Orbits: The bony orbits are grossly intact. There are bilateral ocular lens implants. IMPRESSION: There is no hemorrhage, mass effect, or evidence of acute territorial ischemia by CT criteria. ACT 112: Negative or not required by law. Electronically signed by: Dylon Valle M.D. 04/27/2025 1:42 PM [facility] Narrative Patient was seen and evaluated as above in room C11. Review was performed of triage nursing notes and vital signs. I did review pertinent previous visits and patient history. After obtaining a thorough history and physical examination the above work up was performed. Patient presents to us today for evaluation of dizziness that began this morning around 7 AM. The patient is not able to clarify whether or not this is more room spinning sensation or passing out sensation. It is only when she sits up or stands. She is clinic well-appearing and nontoxic on exam. No focal deficits. NIHSS is 0. EKG per my interpretation reveals sinus bradycardia at rate of 54 bpm. QTc 402. QRS 84. No ST elevation on this rhythm tracing. IV access was established. Labs were drawn. Patient was sent for CT imaging head. Results as above. This was essentially negative. Patient's blood pressure was elevated on arrival but without intervention did trend from 196/64- 172/78. Orthostatic vital signs performed and did not change patient symptoms. Labs reveal no leukocytosis or concerning anemia. No emergent metabolic disturbance. BUN 34 with a creatinine of 1.26. The patient does not appear to be volume depleted. Troponin within normal range making ACS less likely. Urinalysis does not suggest UTI. A chest x-ray was also performed and was negative for acute process with results as above. Case was discussed with ED attending physician. I reviewed findings with the patient. I did order IV fluids, IV Zofran, IV steroids and oral meclizine to further treat the patient's dizziness. Noting the symptoms I do believe that further evaluation and management in the inpatient setting is warranted. Case discussed with the hospitalist service. Please refer to further documentation regarding her stay. GCS: 15 In the evaluation and treatment of this patient the following differential diagnoses were entertained: CVA, TIA, electrolyte disturbance, volume depletion, infection, vertigo, among others. Impression & Plan Dizziness Discharge Plan Visit Data Chief Complaint: Dizziness Stated Complaint: DIZZY ED Provider: Nas Finn ED Midlevel Provider: Trace Pozo Discharge Problem: Dizziness Patient Disposition: Admitted As Inpatient Condition: Good Discharge Instructions Interventions: ED Discharge Assessment Last Done: 04/27/25 15:36
[2025-04-27 13:19] LABS: Magnesium 1.8 mg/dl (1.7-2.4)
--- NOTE | 2025-04-27 13:43 | Emergency Department Note ---
ED Visit Note I was consulted by the Advanced Practice Provider Trace Pozo PA-C. I performed a substantive portion of the visit including all aspects of medical decision making. .
--- NOTE | 2025-04-27 13:44 | CT Scan Report ---
CT SCAN OF THE BRAIN WITHOUT IV CONTRAST CLINICAL HISTORY: Dizziness COMPARISON STUDY: CT of the brain dated 07/24/2018. TECHNIQUE: Unenhanced axial CT scan of the brain is performed from the vertex to the skull base. Imag es are reviewed in the axial, sagittal, coronal planes. A dose lowering technique was utilized adheri ng to the principles of ALARA. CT DOSE: 625.8 mGy.cm FINDINGS: Brain parenchyma: There is age-related involutional change noting mild subcortical and periventricula r microangiopathic disease. There is no hemorrhage, mass effect, or evidence of acute territorial isc hemia by CT criteria. Gutierres-white matter differentiation is preserved. No extra-axial fluid collection is seen. Ventricles, sulci, cisterns: Prominent secondary to involutional change. Intracranial vasculature: There is atherosclerotic calcification of the cavernous carotid and vertebr al arteries. Calvarium: Unremarkable. Sinuses and mastoids: The visualized paranasal sinuses are clear. The mastoid air cells are well pneu matized. Cerumen is noted in the right external auditory canal. Orbits: The bony orbits are grossly intact. There are bilateral ocular lens implants. IMPRESSION: There is no hemorrhage, mass effect, or evidence of acute territorial ischemia by CT wolf tin[place]. ACT 112: Negative or not required by law. Electronically signed by: Dylon Valle M.D. 04/27/2025 1:42 PM
[2025-04-27] MEDS: SODIUM CHLORIDE 0.9% 500 ML IV ONE (14:06)
[2025-04-27] MEDS: MECLIZINE HCL 25 MG TAB PO STA (14:27)
[2025-04-27] MEDS: ONDANSETRON INJ 2 MG/ML 2 ML VIAL IV STA (14:30)
--- NOTE | 2025-04-27 14:41 | History & Physical Report ---
Date of Service April 27, 2025 Assessment & Plan (1) Benign paroxysmal positional vertigo of right ear: (2) Hypertension, uncontrolled: (3) COPD (chronic obstructive pulmonary disease): (4) Mild protein malnutrition: Plan Patient 79-year-old female presents with acute onset of positional vertigo. Will need to rule out posterior circulation stroke in the setting of uncontrolled hypertension Admit to monitored setting, monitor for arrhythmia MRI of the brain, rule out posterior circulation stroke Patient's symptoms and positive Vaishali-Hallpike makes benign positional vertigo the most likely diagnosis Schedule meclizine for symptom control As needed Valium for dizziness Given additional dose of lisinopril, monitor blood pressure, may need further adjustments of her home antihypertensive medication Monitor orthostatic vitals again in morning Physical therapy consultation for Bryce maneuvers Occupational Therapy consultation for evaluation for home safety Patient does live independently at home and will need to be able to function safely at home prior to discharge Continue outpatient inhalers Updated patient's daughter, Nunu, via phone History of Present Illness Chief Complaint: Lightheadedness and dizziness Primary Care Provider: Nas Velasquez MD Patient 79-year-old female who presents to the emergency room with above complaint. Reports that she sat up out of bed this morning around 7 AM and immediately got lightheaded and dizzy. She attempted to stand up and it got worse and she kind of stumbled to the right but was able to kind of eased herself down. She got back in bed and the dizziness resolved. Came to the emergency room for evaluation. In the emergency room laboratory workup was unremarkable. CT imaging of the head was unremarkable. Patient is admitting to still some continued dizziness/lightheadedness but significantly improved compared to previous and earlier in the day. Referred to our service for ongoing evaluation and management. By time of my evaluation the patient says that essentially her lightheadedness had resolved. More specific and detailed questioning she was able to really describe this as being on a [id number]. She denies any fever or chills, no cough or cold symptoms, no chest pain or shortness of breath, no nausea or vomiting, no new problems with the bowels or bladder, no swelling in her hands arms or feet. She states that she went to bed last night feeling well and felt well yesterday. No recent upper respiratory infection symptoms. She denies any unilateral clumsiness or weakness. However, she did feel as though she was kind stumbling to the right this morning when she attempted to get out of bed. She has never had anything like this happen before. She has had no recent changes in her medications. She is been compliant with her medications. Allergies Allergy/AdvReac Type Severity Reaction Status Date / Time No Known Allergies Allergy Mild Verified 04/07/25 10:58 Home Medications Medication Instructions Recorded Confirmed Type aspirin 81 mg tablet,delayed 81 mg PO HS ##0 01/27/13 04/27/25 History release docusate sodium 100 mg capsule 100 mg PO QAM ##0 01/27/13 04/27/25 History multivitamin 1 tab PO HS #0 tabs 01/27/13 04/27/25 History albuterol sulfate 90 mcg/actuation 2 puff inhalation Q4H PRN 07/05/23 04/27/25 History aerosol inhaler Shortness Of Breath Or Wheezing escitalopram oxalate 10 mg tablet 10 mg PO QAM 07/05/23 04/27/25 History umeclidinium 62.5 mcg-vilanterol 1 inh inhalation QAM 03/11/25 04/27/25 History 25 mcg/actuation powdr for inhalation (Anoro Ellipta) lisinopril 20 1 tab PO DAILY 04/27/25 04/27/25 History mg-hydrochlorothiazide 25 mg tablet prednisolone acetate 1 % eye 1 drp ophthalmic (eye) UD 04/27/25 04/27/25 History drops,suspension (Pred Forte) triamcinolone acetonide 0.1 % 1 applic topical BID 04/27/25 04/27/25 History topical cream Past Med/Surg History Problem List (Updated 04/27/25 @ 14:38 by Jluis Aldrich DO) COPD (chronic obstructive pulmonary disease) Hypertension, uncontrolled Benign paroxysmal positional vertigo of right ear Dizziness (Acute) Acute pain associated with herpes zoster (Acute) Non-ST elevation AR (NSTEMI) (Acute) WILBER (acute kidney injury) (Acute) Enterovirus infection (Acute) HLD (hyperlipidemia) LYNNETTE (generalized anxiety disorder) Hypertension Elevated troponin (Acute) Cigarette smoker (Acute) URI (upper respiratory infection) (Acute) Pneumonia (Acute) Tobacco abuse Mild protein malnutrition Transaminitis Abnormal CT scan, head Sinusitis Pneumonia Medical History NSTEMI (non-ST elevated myocardial infarction) pt denies "never had this" Hx of herpes zoster 2022, no residual effects Hx of hyperlipidemia History of hypertension History of COPD daily and prn inh (rare use of rescue inhaler) Generalized anxiety disorder Surgical History History of cataract surgery right Hx of appendectomy as a teen Hx of colonoscopy Family History Other Cancer No family history of adverse response to anesthesia Social History (Updated 04/27/25 @ 14:30 by Jluis Aldrich DO) Smoking Status: Current some day smoker Tobacco Type: Cigarettes Cigarettes Per Day: "sneaks 1 every once in a while but basically quit 1 year ago" advised; Second Hand Exposure: No; Do You Dip or Chew Tobacco: No; Hx Alcohol Use: Yes Alcohol type: beer Hx Substance Use: No Preferred Language: Georgian Communication Ability: Effective Machine Bunch Maker Required: No Beliefs That Will Affect Care: None Current Living Situation: Alone Current Living Situation Comment: Lives in [facility] apt current occupational status: retired Feels Safe at Home: Yes Assistive Devices: Denture - Upper and Denture - Lower Review of Systems Review of Systems: Pertinent positive and negative review of systems as mentioned in the HPI Physical Exam Physical Exam: Constitutional: Alert, no acute distress, nontoxic HEENT: Mucous membranes moist. Sclera clear Neck: Soft, no adenopathy Lungs: Clear to auscultation, decreased, no wheezes rales or rhonchi CV: S1-S2, regular, no significant murmur Abdomen: Soft, nontender, nondistended Extremities: No significant edema Musculoskeletal: No significant joint tenderness Neuro: No focal deficits, NIH stroke score equals 0. Vaishali-Hallpike maneuvers significantly positive when sitting up with head turn to the right. Reproducing exact symptoms she experienced earlier. It rapidly resolved when she sat in a's still position for approximately 1 minute. Psych: Cooperative, normal mood Results & Data Results & Data Vital Signs (Past 12 Hours) Vital Signs Temp Pulse Resp BP Pulse Ox O2 Del Method 04/27/25 13:33 59 L 17 172/78 H 97 Room Air 04/27/25 13:00 56 L 19 97 Room Air 04/27/25 12:11 55 L 04/27/25 12:08 98 Room Air 04/27/25 12:08 98 Room Air 04/27/25 12:06 58 L 24 203/95 H 04/27/25 11:07 37 C 52 L 20 196/64 H 98 Room Air Diagnostic Findings Reviewed imaging, laboratory and diagnostic studies. Pertinent findings as belo w. CT of the head negative for acute findings CBC unremarkable Electrolytes within normal range Creatinine 1.26, baseline Urinalysis unremarkable for signs of infection Personally reviewed EKG, sinus bradycardia, no acute ST-T wave changes Personally reviewed chest x-ray, hyperinflated lungs, flattened diaphragm, no infiltrative process or evidence of edema Orthostatic vital signs reviewed, negative Code Status & VTE Plan VTE Prophylaxis Plan VTE Prophylaxis will be ordered: Yes
[2025-04-27] MEDS ORDERED: ALUMINUM/MAGNESIUM SUSP 30 ML UDC PO PRN (16:01)
[2025-04-27] MEDS ORDERED: ONDANSETRON INJ 2 MG/ML 2 ML VIAL IV PRN (16:01)
[2025-04-27] MEDS ORDERED: MELATONIN 3 MG TAB PO PRN (16:01)
[2025-04-27] MEDS ORDERED: ALBUTEROL HFA 8 GM INHALER INH PRN (16:01)
[2025-04-27] MEDS ORDERED: ACETAMINOPHEN 325 MG TAB PO PRN (16:01)
[2025-04-27] MEDS: GADOBUTROL 65ML VIAL IV ONE (16:59)
--- NOTE | 2025-04-27 17:27 | Magnetic Resonance Report ---
MRI of the brain performed with and without IV contrast History: Dizziness Comparison: 07/24/2018 Technique: Multiplanar T1 weighted, axial T2/FLAIR, and susceptibility images were obtained without intravenous contrast. Following intravenous gadolinium based contrast administration, axial T2 weighted, diffusion, and T1-weighted images were obtained. Findings: No evidence for intracranial mass lesion, mass-effect, midline shift, or abnormal extra-axial fluid collection. Postcontrast images demonstrate no abnormal intracranial enhancement. The orbits are grossly unremarkable. Mild age-related cerebral atrophy. Mild chronic microvascular ischemic changes in the white matter on T2/FLAIR. No abnormally reduced diffusion or evidence for acute infarct. Normal intravascular flow voids. Impression: Age-related changes without acute intracranial pathology Electronically signed by Mark Omer 04-27-2025 5:26 PM
[2025-04-27] MEDS: ENOXAPARIN INJ 40 MG/0.4 ML SYR SQ SCH (18:08)
[2025-04-27] MEDS: ASPIRIN 81 MG ECTAB PO SCH (21:10)
[2025-04-27] MEDS: MULTIVITAMIN TAB PO SCH (21:11)
[2025-04-27] MEDS: MECLIZINE HCL 25 MG TAB PO SCH (21:11)
[2025-04-28 08:13] VITALS: RESP 20
[2025-04-28] MEDS: DOCUSATE SODIUM 100 MG CAP PO SCH (09:07)
[2025-04-28] MEDS: ESCITALOPRAM OXALATE 10 MG TAB PO SCH (09:08)
[2025-04-28] MEDS: LISINOPRIL/HCTZ 20/25MG 1 TAB PO SCH (09:08)
[2025-04-28] MEDS: UMECLIDINIUM/VILANTEROL 62.5/25MCG 7 PUFFS/INHALER INH SCH (09:09)
[2025-04-28] MEDS: prednisoLONE acetate 1% OP SUSP 5 ML BTL OP SCH (09:09)
[2025-04-28 11:28] VITALS: BP 129/73; PULSE 62; TEMP 98.1; O2SAT 96
--- NOTE | 2025-04-28 12:12 | Discharge Summary ---
Discharge Summary Date of Service April 28, 2025 Principal Dx & Hospital Course #1 = Principal Diagnosis (1) Benign paroxysmal positional vertigo of right ear: (2) Hypertension, uncontrolled: (3) COPD (chronic obstructive pulmonary disease): (4) Mild protein malnutrition: Plan 79 year old female with PMH significant for COPD, hypertension, CAD, CKD IIIa, and anxiety who presented to the ED on 04/27/2025 with dizziness and was admitted for work up of this. BPPV Patient presented with sensation of being on a [id number] and positive Vaishali Hallpike Brain MRI negative for stroke Orthostatic vitals negative Dizziness resolved with meclizine - script sent for PRN use at home Telemetry revealed sinus bradycardia - patient reports this is baseline for her - recommend ziopatch at dc for further evaluation Hypertension Continue lisinopril-HCTZ COPD Continue inhalers CAD Continue baby aspirin Anxiety Continue escitalopram Patient seen in collaboration with Dr Diaz. Please see addendum. Notes For Next Care Provider 79 year old female with significant PMH who was admitted at [facility] from 04/27-04/28/2025 for dizziness most likely secondary to BPPV. Dizziness resolved with meclizine. Telemetry revealed sinus bradycardia that patient reports is normal for her but recommend ziopatch at dc to further evaluate. Medication Changes From Visit Meclizine 25mg PO tid PRN Admission HPI Per Admitting Provider Patient 79-year-old female who presents to the emergency room with above complaint. Reports that she sat up out of bed this morning around 7 AM and immediately got lightheaded and dizzy. She attempted to stand up and it got worse and she kind of stumbled to the right but was able to kind of eased herself down. She got back in bed and the dizziness resolved. Came to the emergency room for evaluation. In the emergency room laboratory workup was unremarkable. CT imaging of the head was unremarkable. Patient is admitting to still some continued dizziness/lightheadedness but significantly improved compared to previous and earlier in the day. Referred to our service for ongoing evaluation and management. By time of my evaluation the patient says that essentially her lightheadedness had resolved. More specific and detailed questioning she was able to really describe this as being on a [id number]-hc-yimnn. She denies any fever or chills, no cough or cold symptoms, no chest pain or shortness of breath, no nausea or vomiting, no new problems with the bowels or bladder, no swelling in her hands arms or feet. She states that she went to bed last night feeling well and felt well yesterday. No recent upper respiratory infection symptoms. She denies any unilateral clumsiness or weakness. However, she did feel as though she was kind stumbling to the right this morning when she attempted to get out of bed. She has never had anything like this happen befo re. She has had no recent changes in her medications. She is been compliant with her medications. Admission Exam Per Admitting Provider Constitutional: Alert, no acute distress, nontoxic HEENT: Mucous membranes moist. Sclera clear Neck: Soft, no adenopathy Lungs: Clear to auscultation, decreased, no wheezes rales or rhonchi CV: S1-S2, regular, no significant murmur Abdomen: Soft, nontender, nondistended Extremities: No significant edema Musculoskeletal: No significant joint tenderness Neuro: No focal deficits, NIH stroke score equals 0. Vaishali-Hallpike maneuvers significantly positive when sitting up with head turn to the right. Reproducing exact symptoms she experienced earlier. It rapidly resolved when she sat in a's still position for approximately 1 minute. Psych: Cooperative, normal mood Discharge Exam General/Psych: WD/WN, sitting up in bed, NAD, conversing easily Head: normocephalic, atraumatic Eyes: normal inspection, PERRL, conjunctivae pink ENT: external ear and nose normal, oropharynx normal Neck: normal visual inspection, trachea midline Respiratory: normal respiratory effort, lungs clear to auscultation, no wheeze/rales/rhonchi, no accessory muscle use Cardiovascular: regular rate and rhythm, no murmur/rub/gallop, no JVD Extremities: no cyanosis or clubbing, normal peripheral pulses, no BLE edema Abdomen/GI: normal bowel sounds, soft, nontender Neurologic/MSK: A+Ox3, motor strength 5/5, moves all extremities Skin: no rashes, normal color, warm and dry Updated Medication List Medication Instructions Recorded Confirmed Type aspirin 81 mg tablet,delayed 81 mg PO HS ##0 01/27/13 04/27/25 History release docusate sodium 100 mg capsule 100 mg PO QAM ##0 01/27/13 04/27/25 History multivitamin 1 tab PO HS #0 tabs 01/27/13 04/27/25 History albuterol sulfate 90 mcg/actuation 2 puff inhalation Q4H PRN 07/05/23 04/27/25 History aerosol inhaler Shortness Of Breath Or Wheezing escitalopram oxalate 10 mg tablet 10 mg PO QAM 07/05/23 04/27/25 History umeclidinium 62.5 mcg-vilanterol 1 inh inhalation QAM 03/11/25 04/27/25 History 25 mcg/actuation powdr for inhalation (Anoro Ellipta) lisinopril 20 1 tab PO DAILY 04/27/25 04/27/25 History mg-hydrochlorothiazide 25 mg tablet prednisolone acetate 1 % eye 1 drp ophthalmic (eye) UD 04/27/25 04/27/25 History drops,suspension (Pred Forte) triamcinolone acetonide 0.1 % 1 applic topical BID 04/27/25 04/27/25 History topical cream meclizine 25 mg tablet 25 mg PO TID PRN dizziness #30 tabs 04/28/25 Rx Hospital Stay Data Consultations 04/27/25 13:59 ED Decision to Admit Stat Diagnostic Imagining Performed Chest X-Ray 04/27/25 12:04 XR chest 1V portable CLINICAL HISTORY: dizziness COMPARISON STUDY: 07/11/2023 FINDINGS: Heart size and pulmonary vasculature are normal. No consolidation or pleural effusion. No pneumothorax. IMPRESSION: No acute findings. ACT 112: Negative or not required by law. Electronically signed by: Denilson Aparicio M.D. 04/27/2025 12:[address] 04/27/25 13:02 CT SCAN OF THE BRAIN WITHOUT IV CONTRAST CLINICAL HISTORY: Dizziness COMPARISON STUDY: CT of the brain dated 07/24/2018. TECHNIQUE: Unenhanced axial CT scan of the brain is performed from the vertex to the skull base. Images are reviewed in the axial, sagittal, coronal planes. A dose lowering technique was utilized adhering to the principles of ALARA. CT DOSE: 625.8 mGy.cm FINDINGS: Brain parenchyma: There is age-related involutional change noting mild subcortical and periventricular microangiopathic disease. There is no hemorrhage, mass effect, or evidence of acute territorial ischemia by CT criteria. Gutierres-white matter differentiation is preserved. No extra-axial fluid collection is seen. Ventricles, sulci, cisterns: Prominent secondary to involutional change. Intracranial vasculature: There is atherosclerotic calcification of the cavernous carotid and vertebral arteries. Calvarium: Unremarkable. Sinuses and mastoids: The visualized paranasal sinuses are clear. The mastoid air cells are well pneumatized. Cerumen is noted in the right external auditory canal. Orbits: The bony orbits are grossly intact. There are bilateral ocular lens implants. IMPRESSION: There is no hemorrhage, mass effect, or evidence of acute territorial ischemia by CT criteria. ACT 112: Negative or not required by law. Electronically signed by: Dylon Valle M.D. 04/27/2025 1:42 PM Brain MRI 04/27/25 14:31 MRI of the brain performed with and without IV contrast History: Dizziness Comparison: 07/24/2018 Technique: Multiplanar T1 weighted, axial T2/FLAIR, and susceptibility images were obtained without intravenous contrast. Following intravenous gadolinium based contrast administration, axial T2 weighted, diffusion, and T1-weighted images were obtained. Findings: No evidence for intracranial mass lesion, mass-effect, midline shift, or abnormal extra-axial fluid collection. Postcontrast images demonstrate no abnormal intracranial enhancement. The orbits are grossly unremarkable. Mild age-related cerebral atrophy. Mild chronic microvascular ischemic changes in the white matter on T2/FLAIR. No abnormally reduced diffusion or evidence for acute infarct. Normal intravascular flow voids. Impression: Age-related changes without acute intracranial pathology Electronically signed by Mark Omer 04-27-2025 5:26 PM Pending Results Patient Have Any Pending Studies at Discharge: No Discharge Instructions Given to Patient (Per Discharging Provider) You presented to the hospital with dizziness and were admitted for evaluation of this. We checked an MRI of your brain to make sure you didn't have a stroke, which was normal and did not show evidence of a stroke. We gave you a medication called meclizine, which helped your dizziness significantly. We monitored your heart rhythm which showed a slow heart rate, which you say is normal for you. We recommend you have a ziopatch outpatient which is a sticker that can monitor for heart rhythm for several days or weeks to detect any irregular heartbeats. You worked with Physical Therapy and Occupational Therapy who determined that you were safe to return home and you felt ready for discharge. MEDICATION CHANGES: Meclizine 25mg by mouth as needed up to three times per day for dizziness SUMMARY OF TEST RESULTS: Brain MRI normal PENDING TEST RESULTS: None RECOMMENDATIONS FOR FOLLOW-UP: Please follow up with your PCP as scheduled on 05/04/2025 at 9:00am to discuss your hospitalization OTHER INSTRUCTIONS: Seek medical attention if you have: * temperature above 101 * chest pain or trouble breathing * abdominal pain, nausea, vomiting * diarrhea, dark stools or bloody stools * any unanswered questions or concerns Call 911 if symptoms are severe. It has been a pleasure taking care of you. Please take care of yourself. If you have any questions regarding your recent hospitalization please contact [facility] and request Yuly Renaeist @ [phone]. Total Time Total Time Spent Total Time Spent (In Minutes): I spent a total of 35 minutes coordinating, documenting and providing care for this patient excluding time spent in the performance of separately billed serv ices or time spent by another provider/QHP. Supervising Physician Co-Signing Physician Notes Patient is seen and examined on day of discharge. States that her vertigo resolved. Orthostatics within normal limits. Admits that her vertigo was predominantly when she turns her head to the right side. She denies any chest p ain, dyspnea, nausea, vomiting, abdominal pain, recent upper respiratory tract infection. On exam patient is moderately built and nourished, no apparent distress, normocephalic atraumatic, EOMI, normal breath sounds, clear to auscultation, S1-S2, bradycardia, no murmur, no pedal edema, abdomen soft, nontender, normal bowel sounds, alert, awake, oriented, grossly no focal deficits. Brain MRI showed no acute process. Orthostatics within normal limits. Dizziness thought to be BPPV. Incidentally found to be bradycardic. Advised ZIO monitor as outpatient. Not on any AV christian blocking agents. Agree with continuing meclizine as needed. PT evaluated as well. Advised to follow- up with PCP in 1 week. I personally interviewed and examined the patient at bedside. I have reviewed the advanced practitioner's documentation on the date of service referred in note and agree with plan. Patient's care is coordinated with Su MCCARTY. Please refer to the documentation above for details of bessy connors's presentation and for discussion of other issues. I spent a total [id number] coordinating, documenting, and providing care for this patient excluding time spent in the performance of separately billed services or time spent by another provider/QHP.
--- NOTE | 2025-05-01 13:55 | Electrocardiogram Report ---
Test Reason : Blood Pressure : */* mmHG Vent. Rate : 54 BPM Atrial Rate : 54 BPM P-R Int : 156 ms QRS Dur : 84 ms QT Int : 424 ms P-R-T Axes : 87 -32 31 degrees QTcB Int : 402 ms Sinus bradycardia Left axis deviation Septal infarct , age undetermined Abnormal ECG When compared with ECG of 12-Jul-2023 05:42, Premature atrial complexes are no longer Present Septal infarct is now Present Nonspecific T wave abnormality now evident in Anterior leads Confirmed by Davion Moore ([id number]) on 05/01/2025 1:54:52 PM Referred By: REFERRED SELF Confirmed By: Davion Moore
== END 2025-04-28 12:25 | disposition home or self-care (01) ==
LOC: ED 10:52 → 2N 10:52 → SUATTDRO 14:31 → 2N 15:36